=== PATIENT | male | born 1955 | race Caucasian/White ===

== ENCOUNTER 2020-03-24 11:20 | Outpatient (RCR) | payer MEDICARE ==
[~2020-03-24 11:20] MED LIST: AC500T PO; AMLO10TA82 PO; AMLO5TAB2 PO; APIX5TAB2 PO; ASP325T PO; ASPI-875 PO; ASPI-892 PO; Amlodipine Besylate PO; Aspirin PO; CARV25TA PO; CITA20TA4 PO; CLON-316 PO; CTLP20T PO; DXZS4T PO; ENXP100I SC; HYDR25TA4 PO; Hydrochlorothiazide PO; INSU100C4 SQ; INSU100I10 SQ; INSU100I14 SQ; ISM30TCR PO; LEVE1U SQ; LISI10TA PO; LISI20TA PO; LISI5TAB PO; Lisinopril PO; METO100T2 PO; Metoprolol Tartrate PO; NF-CRES10T PO; NITR0.4T SL; NTR.4SL SL; PANT20TA PO; PANT40TA PO; PNT40TEC PO; PRAS10TA6 PO; PRAV40TA PO; Prasugrel Hydrochloride PO; RIVA10TA PO; RIVA15TA PO; RIVA20TA2 PO; SIMV40TA4 PO; TICA90TA PO; WRF5T PO; [UNRECOGNIZED DRUG - OTHER] PO
[2020-03-24 11:56] LABS: INR 2.5 (0.8-1.4); PROTHROMBIN TIME PATIENT 28.1 SEC (12.2-14.7)
[2020-06-02] MEDS ORDERED: AMLO10TA7 PO (08:16)
[2020-06-02] MEDS ORDERED: RAMI10CA69 PO (08:16)
[2020-06-02] MEDS ORDERED: CLOP75TA28 PO (08:16)
[2020-06-02] MEDS ORDERED: WARF6TAB49 PO (08:16)
[2020-06-02] MEDS ORDERED: HUM100VI SQ ×2 (08:16)
[2020-06-02] MEDS ORDERED: ISM60TCR PO (08:16)
[2020-06-02] MEDS ORDERED: LISI-556 PO (08:16)
[2020-06-02] MEDS ORDERED: FURO40TA4 PO (08:16)
[2020-06-02] MEDS ORDERED: SPIR25TA5 PO (08:16)
[2020-06-02] MEDS ORDERED: ATOR40TA70 PO (08:16)
[2020-06-02] MEDS ORDERED: METO50TA7 PO (08:16)
[2020-06-03] MEDS ORDERED: CEPH-507 PO (11:12)
[2020-06-22] MEDS ORDERED: APIX5TAB PO (15:14)
== END 2020-06-22 | disposition home or self-care (01) ==
LOC: LAB 11:20
PROVIDERS: ATTEND Family Medicine
DX: I74.9 Embolism and thrombosis of unspecified artery (principal)
CPT/HCPCS: 36415; 85610

== ENCOUNTER → 2020-04-19 | Outpatient (CLI) | payer MEDICARE ==
[~2020-04-19] VITALS: Ht 180 cm; Wt 102.0 kg
[~2020-04-19] MED LIST changes: +REGADENOSON 0.4 MG/5 ML SYR (LEXISCAN) IV ONE
[2020-04-19] MEDS: CATHETER FLUSH 10 ML SYR IV PRN ×2 (07:56→09:14)
[2020-04-19 09:13] VITALS: BP 154/92
--- NOTE | 2020-04-19 14:35 | STRESS TEST ---
DATE OF SERVICE: 04/19/2020 RESTING AND POST REGADENOSON TECHNETIUM-99M TETROFOSMIN SPECT CT IMAGING ORDERING PHYSICIAN: Dr. Solorio. PRIMARY PHYSICIAN: Dr. Rosenbaum. CLINICAL DIAGNOSIS: Coronary artery disease. Baseline images were carried out after injection of 10.91 mCi of technetium-99m Tetrofosmin. This was followed by 0.4 mg regadenoson and 30.7 mCi of technetium-99m Tetrofosmin for stress imaging. The electrocardiogram showed sinus rhythm with left bundle branch block at baseline and it did not change with the regadenoson infusion. Occasional premature ventricular contraction was seen. The patient tolerated the procedure well and did not report significant symptoms. Review of images at rest and following stress indicates a large inferolateral perfusion defect that extends up to the apex. This perfusion defect is predominantly fixed. There is inferolateral hypokinesis to akinesis. Left ventricular end diastolic volume is 147 mL. TID is absent (1.16). Left ventricular ejection fraction is calculated to be 25%. CONCLUSIONS: 1. This study is indicative of a large inferolateral myocardial infarction with minimal jacoby-infarct ischemia. 2. Inferolateral hypokinesis to akinesis. 3. Cardiomegaly. 4. Impairment of global left ventricular systolic function with a calculated ejection fraction of 25%. Job ID: [id number] DocumentID: [id number] Dictated Date: 04/19/2020 12:50:53 Television Analyzer Date: 04/19/2020 14:35:07 Dictated By: KRISTINE SOLORIO MD, MA, FACP, FACC,
== END ==
LOC: CARD 07:40
PROVIDERS: ATTEND Internal Medicine Cardiovascular Disease
DX: I25.10 Atherosclerotic heart disease of native coronary artery without angina pectoris (principal); I95.1 Orthostatic hypotension; I70.1 Atherosclerosis of renal artery; E11.9 Type 2 diabetes mellitus without complications; E78.5 Hyperlipidemia, unspecified; I51.7 Cardiomegaly; I51.89 Other ill-defined heart diseases
CPT/HCPCS: 78452; 93017; A9502

== ENCOUNTER → 2020-04-20 | Outpatient (CLI) | payer MEDICARE ==
[~2020-04-20] MED LIST changes: -REGADENOSON 0.4 MG/5 ML SYR (LEXISCAN) IV ONE
== END ==
LOC: CARD 13:44
PROVIDERS: ATTEND Internal Medicine Cardiovascular Disease
DX: I35.0 Nonrheumatic aortic (valve) stenosis (principal); I25.10 Atherosclerotic heart disease of native coronary artery without angina pectoris; I95.1 Orthostatic hypotension; I70.1 Atherosclerosis of renal artery; E11.9 Type 2 diabetes mellitus without complications; E78.5 Hyperlipidemia, unspecified; I51.89 Other ill-defined heart diseases
CPT/HCPCS: 93306

== ENCOUNTER 2020-05-11 11:09 | Emergency (ER) | payer MEDICARE ==
--- NOTE | 2020-05-11 11:20 | NUR ---
REGISTRATION REPORTS PT HAS LEFT.
--- OUTSIDE RECORDS SUMMARY | 2020-05-11 13:02 | XMS REPORT | Clinical Summary ---
Author Author [facility] Organization [facility] Address Unknown Phone Unavailable Care Team Providers Care Quality Specialist Name Role Phone ChayoBrien gutierrez PCP Juanito Menard MD Unavailable Unavailable Janel Morrison RN Unavailable Unavailable Source Comments Some departments are not documenting in the electronic medical record. If you d o not see the information that you expected, contact Release of Information in [facility] Information Management department at [phone] for further assistan ce in locating additional records.[facility] Allergies Comments Active Allergy Reactions Severity Noted Date Clopidogrel UNKNOWN 07/10/2013 Medications End Date Status Medication Sig Dispensed Refills Start Date Active aspirin 81 mg chewable Take 81 mg by 0 tablet mouth daily. Active carvedilol (COREG) 25 mg Take 25 mg by 0 tablet mouth twice daily. Active citalopram (CELEXA) 20 mg Take 20 mg by 0 tablet mouth at bedtime daily. Active acetaminophen (TYLENOL) Take 1,500 mg 0 500 mg tablet by mouth daily as needed. Active insulin detemir(+) Inject 28 0 (LEVEMIR) 100 unit/mL Units into Soln area(s) as directed twice daily before meals. Active lisinopril (PRINIVIL; Take 5 mg by 0 ZESTRIL) 5 mg tablet mouth twice daily. Active nitroglycerin (NITROSTAT) Place 0.4 mg 0 0.4 mg tablet under tongue every 5 minutes as needed. Active simvastatin (ZOCOR) 40 mg Take 40 mg by 0 tablet mouth at bedtime daily. Active insulin aspart (NOVOLOG) Inject 10 0 100 unit/mL flexPEN Units into area(s) as directed three times daily with meals. Active pantoprazole DR Take 40 mg by 0 (PROTONIX) 40 mg tablet mouth daily. Active enoxaparin (LOVENOX) 100 Inject 1 mL 60 Syringe 1 1 /201 mg syrg into area(s) 3 as directed twice daily. Active Problems Problem Noted Date DVT (deep venous thrombosis) 07/10/2013 Overview: 57y/o with recurrent DVT, first DVT in LU2010, January 2013: LLE DVT. Placed on coumadin, was compliant, and INRs therapeutic. March 2013: Recurrent vs persistent LLE DVT and new PE (INR 3.4). IVC placed 04/03/2013. Switched to xarelto. May 2013: Recur rent vs persistent LLE DVT. Underwent thrombolysis and continued on xarelto. June 2013: Recurrent LLE DVT despite anticoagulation with xa relto. No arterial clots. APLS ruled out based on outside labs (Anticardioli pin Ig.1, IgM Ab: 5.4, LA negative) Factor V Mutation: negative a t OSH. Family history positive for daughter with blood clot at age 18, ag e 29 open heart surgery due to coronary clot. Previously followed by Dr. 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 Transitione d to lovenox L ast Assessment & Plan: Previous hypercoagulable workup negativ e at outside hospital. No inciting event for repeat DVT. Differential inc ludes May-Thurner syndrome. Will plan to obtain magnetic resonance venog vincent for further evaluation. Will continue lovenox BID. CAD (coronary artery disease) 07/10/2013 DM (diabetes mellitus) 07/10/2013 Peripheral vascular disease 07/10/2013 HTN (hypertension) 07/10/2013 GERD (gastroesophageal reflux disease) 07/10/2013 Family History Medical History Relation Name Comments Heart Disease Brother Blood Clots Daughter Relation Name Status Comments Brother Daughter Social History Date Tobacco Use Types Packs/Day Years Used Never Smoker Drinks/Week oz/Week Comments Alcohol Use 0 Standard drinks or equivalent 0.0 No Sex Assigned at Date Recorded Not on file Industry Job Start Date Occupation Not on file Not on file Not on file Travel End Travel History Travel Start No recent travel history available. Last Filed Vital Signs Reading Time Taken Comments Vital Sign 101/67 08/10/2013 2:38 PM CDT Blood Pressure 101 08/10/2013 2:38 PM CDT Pulse 37.1 C (98.7 F) 07/14/2013 3:39 PM CDT Temperature - - Respiratory Rate 92% 08/10/2013 2:38 PM CDT Oxygen Saturation - - Inhaled Oxygen Concentration 98.5 kg (217 lb 3.2 oz) 08/10/2013 2:38 PM CDT Weight 180.1 cm (5' 10.9") 08/10/2013 2:38 PM CDT Height 30.38 08/10/2013 2:38 PM CDT Body Mass Index Plan of Treatment Health Maintenance Due Date Last Done Comments MEDICARE ANNUAL WELLNESS 1954 VISIT HIV SCREENING 1969 DTAP/TDAP VACCINES (1 - 1972 Tdap) HEPATITIS C SCREENING 1972 PHYSICAL (COMPREHENSIVE) 1972 EXAM COLORECTAL CANCER 2004 SCREENING SHINGLES RECOMBINANT 2004 VACCINE (1 of 2) PNEUMONIA (PPSV23) 2019 VACCINE (1 of 1 - PPSV23) INFLUENZA VACCINE 07/14/2020 Results Not on filefrom Last 3 Months Insurance Type Payer Benefit Subscriber ID Effective Phone Address Plan / Dates Group Medicare MEDICARE MEDICARE xxxxxxxxxx 2013-P PART A AND resent B Medicaid [employer] [place] [employer] xxxxxxxxxxx 2012-P 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
--- OUTSIDE RECORDS SUMMARY | 2020-05-11 13:03 | XMS REPORT | Continuity of Care Document ---
Author Organization Unknown Address Unknown Phone Unavailable Allergies Active Description Code Type Severity Reaction Onset Reported/Identified Relationship to Patient Clinical Status Yes clopidogrel bisulfate [id number] Drug Allergy Mild N/A 05/05/2014 Medications There is no data. Problems Date Dx Coded Attending Type Code Diagnosis Diagnosed By 08/26/2014 GELLENDER DO, ARTIE Deshpande Ot 786.59 08/26/2014 GELLENDER DO, ARTIE Deshpande Ot 799.02 08/26/2014 GELLENDER DO, ARTIE Deshpande Ot V15.81 08/26/2014 GELLENDER DO, ARTIE Deshpande Ot 786.59 08/26/2014 GELLENDER DO, ARTIE Deshpande Ot 799.02 08/26/2014 GELLENDER DO, ARTIE Deshpande Ot V15.81 08/27/2014 GELLENDER DO, ARTIE A Ot 786.59 08/27/2014 GELLENDER DO, ARTIE A Ot 799.02 08/27/2014 GELLENDER DO, ARTIE A Ot V15.81 08/27/2014 GELLENDER DO, ARTIE A Ot 246.8 08/27/2014 GELLENDER DO, ARTIE A Ot 250.00 08/27/2014 GELLENDER DO, ARTIE A Ot 272.4 08/27/2014 GELLENDER DO, ARTIE A Ot 275.2 08/27/2014 GELLENDER DO, ARTIE A Ot 311 08/27/2014 GELLENDER DO, ARTIE A Ot 412 08/27/2014 GELLENDER DO, ARTIE A Ot 414.01 08/27/2014 GELLENDER DO, ARTIE A Ot 428.0 08/27/2014 GELLENDER DO, ARTIE A Ot 440.0 08/27/2014 GELLENDER DO, ARTIE A Ot 453.40 08/27/2014 GELLENDER DO, ARTIE A Ot 486 08/27/2014 GELLENDER DO, ARTIE Deshpande Ot 574.20 08/27/2014 GELLENDER DO, ARTIE Deshpande Ot 577.0 08/27/2014 GELLENDER DO, ARTIE Deshpande Ot 716.90 08/27/2014 GELLENDER DO, ARTIE Deshpande Ot 799.02 08/27/2014 GELLENDER DO, ARTIE Deshpande Ot V12.51 08/27/2014 GELLENDER DO, RATIE Deshpande Ot V15.81 08/27/2014 GELLENDER DO, ARTIE Deshpande Ot V45.82 08/27/2014 GELLENDER DO, ARTIE Deshpande Ot V45.89 08/27/2014 GELLENDER DO, ARTIE Deshpande Ot V58.67 08/27/2014 GELLENDER DO, ARTIE Deshpande Ot 246.8 08/27/2014 GELLENDER DO, ARTIE Deshpande Ot 250.00 08/27/2014 GELLENDER DO, ARTIE Deshpande Ot 272.4 08/27/2014 GELLENDER DO, ARTIE Deshpande Ot 275.2 08/27/2014 GELLENDER DO, ATRIE Deshpande Ot 311 08/27/2014 GELLENDER DO, ARTIE Deshpande Ot 412 08/27/2014 GELLENDER DO, ARTIE Deshpande Ot 414.01 08/27/2014 GELLENDER DO, ARTIE Deshpande Ot 428.0 08/27/2014 GELLENDER DO, ARTIE Deshpande Ot 440.0 08/27/2014 GELLENDER DO, ARTIE Deshpande Ot 453.40 08/27/2014 GELLENDER DO, ARTIE Deshpande Ot 486 08/27/2014 GELLENDER DO, ARTIE Deshpande Ot 574.20 08/27/2014 GELLENDER DO, ARTIE Deshpande Ot 577.0 08/27/2014 GELLENDER DO, ARTIE Deshpande Ot 716.90 08/27/2014 GELLENDER DO, ARTIE Deshpande Ot 799.02 08/27/2014 GELLENDER DO, ARTIE Deshpande Ot V12.51 08/27/2014 GELLENDER DO, ARTIE Deshpande Ot V15.81 08/27/2014 GELLENDER DO, ARTIE Deshpande Ot V45.82 08/27/2014 GELLENDER DO, ARTIE A Ot V45.89 08/27/2014 GELLENDER DO, ARTIE Deshpande Ot V58.67 08/28/2014 GELLENDER DO, ARTIE Deshpande Ot 246.8 08/28/2014 GELLENDER DO, ARTIE Deshpande Ot 250.00 08/28/2014 GELLENDER DO, ARTIE Deshpande Ot 272.4 08/28/2014 GELLENDER DO, ARTIE Deshpande Ot 275.2 08/28/2014 GELLENDER DO, ARTIE A Ot 311 08/28/2014 GELLENDER DO, ARTIE A Ot 412 08/28/2014 GELLENDER DO, ARTIE A Ot 414.01 08/28/2014 GELLENDER DO, ARTIE A Ot 428.0 08/28/2014 GELLENDER DO, ARTIE A Ot 440.0 08/28/2014 GELLENDER DO, ARTIE A Ot 453.40 08/28/2014 GELLENDER DO, ARTIE A Ot 486 08/28/2014 GELLENDER DO, ARTIE A Ot 574.20 08/28/2014 GELLENDER DO, ARTIE A Ot 577.0 08/28/2014 GELLENDER DO, ARTIE A Ot 716.90 08/28/2014 GELLENDER DO, ARTIE A Ot 799.02 08/28/2014 GELLENDER DO, ARTIE A Ot V12.51 08/28/2014 GELLENDER DO, ARTIE A Ot V15.81 08/28/2014 GELLENDER DO, ARTIE A Ot V45.82 08/28/2014 GELLENDER DO, ARTIE A Ot V45.89 08/28/2014 GELLENDER DO, ARTIE A Ot V58.67 08/29/2014 GELLENDER DO, ARTIE A Ot 246.8 08/29/2014 GELLENDER DO, ARTIE A Ot 250.00 08/29/2014 GELLENDER DO, ARTIE A Ot 272.4 08/29/2014 GELLENDER DO, ARTIE A Ot 275.2 08/29/2014 GELLENDER DO, ARTIE A Ot 311 08/29/2014 GELLENDER DO, ARTIE A Ot 412 08/29/2014 GELLENDER DO, ARTIE A Ot 414.01 08/29/2014 GELLENDER DO, ARTIE A Ot 428.0 08/29/2014 GELLENDER DO, ARTIE A Ot 440.0 08/29/2014 GELLENDER DO, ARTIE A Ot 453.40 08/29/2014 GELLENDER DO, ARTIE A Ot 486 08/29/2014 GELLENDER DO, ARTIE A Ot 574.20 08/29/2014 GELLENDER DO, ARTIE A Ot 577.0 08/29/2014 GELLENDER DO, ARTIE A Ot 716.90 08/29/2014 GELLENDER DO, ARTIE A Ot 799.02 08/29/2014 GELLENDER DO, ARTIE A Ot V12.51 08/29/2014 GELLENDER DO, ARTIE A Ot V15.81 08/29/2014 GELLENDER DO, ARTIE A Ot V45.82 08/29/2014 GELLENDER DO, ARTIE A Ot V45.89 08/29/2014 GELLENDER DO, ARTIE A Ot V58.67 08/30/2014 GELLENDER DO, ARTIE A Ot 246.8 08/30/2014 GELLENDER DO, ARTIE A Ot 250.00 08/30/2014 GELLENDER DO, ARTIE A Ot 272.4 08/30/2014 GELLENDER DO, ARTIE A Ot 275.2 08/30/2014 GELLENDER DO, ARTIE A Ot 311 08/30/2014 GELLENDER DO, ARTIE A Ot 412 08/30/2014 GELLENDER DO, ARTIE A Ot 414.01 08/30/2014 GELLENDER DO, ARTIE A Ot 428.0 08/30/2014 GELLENDER DO, ARTIE A Ot 440.0 08/30/2014 GELLENDER DO, ARTIE A Ot 453.40 08/30/2014 GELLENDER DO, ARTIE A Ot 486 08/30/2014 GELLENDER DO, ARTIE A Ot 574.20 08/30/2014 GELLENDER DO, ARTIE A Ot 577.0 08/30/2014 GELLENDER DO, ARTIE A Ot 716.90 08/30/2014 GELLENDER DO, ARTIE Deshpande Ot 799.02 08/30/2014 GELLENDER DO, ARTIE Deshpande Ot V12.51 08/30/2014 GELLENDER DO, ARTIE A Ot V15.81 08/30/2014 GELLENDER DO, ARTIE A Ot V45.82 08/30/2014 GELLENDER DO, ARTIE A Ot V45.89 08/30/2014 GELLENDER DO, ARTIE A Ot V58.67 08/31/2014 GELLENDER DO, ARTIE A Ot 246.8 08/31/2014 GELLENDER DO, ARTIE A Ot 250.00 08/31/2014 GELLENDER DO, ARTIE A Ot 272.4 08/31/2014 GELLENDER DO, ARTIE A Ot 275.2 08/31/2014 GELLENDER DO, ARTIE A Ot 311 08/31/2014 GELLENDER DO, ARTIE A Ot 412 08/31/2014 GELLENDER DO, ARTIE A Ot 414.01 08/31/2014 GELLENDER DO, ARTIE A Ot 428.0 08/31/2014 GELLENDER DO, ARTIE A Ot 440.0 08/31/2014 GELLENDER DO, ARTIE A Ot 453.40 08/31/2014 GELLENDER DO, ARTIE A Ot 486 08/31/2014 GELLENDER DO, ARTIE A Ot 574.20 08/31/2014 GELLENDER DO, ARTIE A Ot 577.0 08/31/2014 GELLENDER DO, ARTIE A Ot 716.90 08/31/2014 GELLENDER DO, ARTIE A Ot 799.02 08/31/2014 GELLENDER DO, ARTIE A Ot V12.51 08/31/2014 GELLENDER DO, ARTIE A Ot V15.81 08/31/2014 GELLENDER DO, ARTIE A Ot V45.82 08/31/2014 GELLENDER DO, ARTIE A Ot V45.89 08/31/2014 GELLENDER DO, ARTIE A Ot V58.67 09/01/2014 GELLENDER DO, ARTIE A Ot 246.8 09/01/2014 GELLENDER DO, ARTIE A Ot 250.00 09/01/2014 GELLENDER DO, ARTIE A Ot 272.4 09/01/2014 GELLENDER DO, ARTIE A Ot 275.2 09/01/2014 GELLENDER DO, ARTIE A Ot 311 09/01/2014 GELLENDER DO, ARTIE A Ot 412 09/01/2014 GELLENDER DO, ARTIE A Ot 414.01 09/01/2014 GELLENDER DO, ARTIE A Ot 428.0 09/01/2014 GELLENDER DO, ARTIE A Ot 440.0 09/01/2014 GELLENDER DO, ARTIE A Ot 453.40 09/01/2014 GELLENDER DO, ARTIE A Ot 486 09/01/2014 GELLENDER DO, ARTIE A Ot 574.20 09/01/2014 GELLENDER DO, ARTIE A Ot 577.0 09/01/2014 GELLENDER DO, ARTIE A Ot 716.90 09/01/2014 GELLENDER DO, ARTIE A Ot 799.02 09/01/2014 GELLENDER DO, ARTIE A Ot V12.51 09/01/2014 GELLENDER DO, ARTIE A Ot V15.81 09/01/2014 GELLENDER DO, ARTIE A Ot V45.82 09/01/2014 GELLENDER DO, ARTIE A Ot V45.89 09/01/2014 GELLENDER DO, ARTIE A Ot V58.67 09/01/2014 GELLENDER DO, ARTIE A Ot 246.8 09/01/2014 GELLENDER DO, ARTIE A Ot 250.00 09/01/2014 GELLENDER DO, ARTIE A Ot 272.4 09/01/2014 GELLENDER DO, ARTIE A Ot 275.2 09/01/2014 GELLENDER DO, ARTIE A Ot 311 09/01/2014 GELLENDER DO, ARTIE A Ot 412 09/01/2014 GELLENDER DO, ARTIE A Ot 414.01 09/01/2014 GELLENDER DO, ARTIE A Ot 428.0 09/01/2014 GELLENDER DO, ARTIE A Ot 440.0 09/01/2014 GELLENDER DO, ARTIE A Ot 453.40 09/01/2014 GELLENDER DO, ARTIE A Ot 486 09/01/2014 GELLENDER DO, ARTIE A Ot 574.20 09/01/2014 GELLENDER DO, ARTIE A Ot 577.0 09/01/2014 GELLENDER DO, ARTIE A Ot 716.90 09/01/2014 GELLENDER DO, ARTIE A Ot 799.02 09/01/2014 GELLENDER DO, ARTIE A Ot V12.51 09/01/2014 GELLENDER DO, ARTIE A Ot V15.81 09/01/2014 GELLENDER DO, ARTIE A Ot V45.82 09/01/2014 GELLENDER DO, ARTIE A Ot V45.89 09/01/2014 GELLENDER DO, ARTIE A Ot V58.67 09/02/2014 GELLENDER DO, ARTIE A Ot 246.8 09/02/2014 GELLENDER DO, ARTIE A Ot 250.02 09/02/2014 GELLENDER DO, ARTIE A Ot 270.4 09/02/2014 GELLENDER DO, ARTIE A Ot 272.4 09/02/2014 GELLENDER DO, ARTIE A Ot 275.2 09/02/2014 GELLENDER DO, ARTIE A Ot 300.01 09/02/2014 GELLENDER DO, ARTIE A Ot 311 09/02/2014 GELLENDER DO, ARTIE A Ot 405.91 09/02/2014 GELLENDER DO, ARTIE A Ot 411.1 09/02/2014 GELLENDER DO, ARTIE A Ot 412 09/02/2014 GELLENDER DO, ARTIE A Ot 414.01 09/02/2014 GELLENDER DO, ARTIE A Ot 428.0 09/02/2014 GELLENDER DO, ARTIE A Ot 435.9 09/02/2014 GELLENDER DO, ARTIE A Ot 440.0 09/02/2014 GELLENDER DO, ARTIE A Ot 453.41 09/02/2014 GELLENDER DO, ARTIE A Ot 453.50 09/02/2014 GELLENDER DO, ARTIE A Ot 486 09/02/2014 GELLENDER DO, ARTIE A Ot 530.81 09/02/2014 GELLENDER DO, ARTIE A Ot 574.20 09/02/2014 GELLENDER DO, ARTIE A Ot 577.0 09/02/2014 GELLENDER DO, ARTIE A Ot 715.90 09/02/2014 GELLENDER DO, ARTIE A Ot 799.02 09/02/2014 GELLENDER DO, ARTIE A Ot V15.81 09/02/2014 GELLENDER DO, ARTIE A Ot V45.82 09/02/2014 GELLENDER DO, ARTIE A Ot V45.89 09/02/2014 GELLENDER DO, ARTIE A Ot V58.67 09/02/2014 GELLENDER DO, ARTIE A Ot 246.8 09/02/2014 GELLENDER DO, ARTIE A Ot 250.02 09/02/2014 GELLENDER DO, ARTIE A Ot 270.4 09/02/2014 GELLENDER DO, ARTIE A Ot 272.4 09/02/2014 GELLENDER DO, ARTIE A Ot 275.2 09/02/2014 GELLENDER DO, ARTIE A Ot 300.01 09/02/2014 GELLENDER DO, ARTIE A Ot 311 09/02/2014 GELLENDER DO, ARTIE A Ot 402.91 09/02/2014 GELLENDER DO, ARTIE A Ot 411.1 09/02/2014 GELLENDER DO, ARTIE A Ot 412 09/02/2014 GELLENDER DO, ARTIE A Ot 414.01 09/02/2014 GELLENDER DO, ARTIE A Ot 428.0 09/02/2014 GELLENDER DO, ARTIE A Ot 435.9 09/02/2014 GELLENDER DO, ARTIE A Ot 440.0 09/02/2014 GELLENDER DO, ARTIE A Ot 453.41 09/02/2014 GELLENDER DO, ARTIE A Ot 453.50 09/02/2014 GELLENDER DO, ARTIE A Ot 486 09/02/2014 GELLENDER DO, ARTIE A Ot 530.81 09/02/2014 GELLENDER DO, ARTIE A Ot 574.20 09/02/2014 GELLENDER DO, ARTIE A Ot 715.90 09/02/2014 GELLENDER DO, ARTIE A Ot 799.02 09/02/2014 GELLENDER DO, ARTIE A Ot V04.81 09/02/2014 GELLENDER DO, ARTIE A Ot V15.81 09/02/2014 GELLENDER DO, ARTIE A Ot V45.82 09/02/2014 GELLENDER DO, ARTIE A Ot V45.89 09/02/2014 GELLENDER DO, ARTIE A Ot V58.67 09/17/2014 GELLENDER DO, ARTIE A Ot 246.8 09/17/2014 GELLENDER DO, ARTIE A Ot 250.02 09/17/2014 GELLENDER DO, ARTIE A Ot 270.4 09/17/2014 GELLENDER DO, ARTIE A Ot 272.4 09/17/2014 GELLENDER DO, ARTIE A Ot 275.2 09/17/2014 GELLENDER DO, ARTIE A Ot 300.01 09/17/2014 GELLENDER DO, ARTIE A Ot 311 09/17/2014 GELLENDER DO, ARTIE A Ot 402.91 09/17/2014 GELLENDER DO, ARTIE A Ot 411.1 09/17/2014 GELLENDER DO, ARTIE A Ot 412 09/17/2014 GELLENDER DO, ARTIE A Ot 414.01 09/17/2014 GELLENDER DO, ARTIE A Ot 428.0 09/17/2014 GELLENDER DO, ARTIE A Ot 435.9 09/17/2014 GELLENDER DO, ARTIE A Ot 440.0 09/17/2014 GELLENDER DO, ARTIE A Ot 453.41 09/17/2014 GELLENDER DO, ARTIE A Ot 453.50 09/17/2014 GELLENDER DO, ARTIE A Ot 486 09/17/2014 GELLENDER DO, ARTIE A Ot 530.81 09/17/2014 GELLENDER DO, ARTIE A Ot 574.20 09/17/2014 GELLENDER DO, ARTIE A Ot 715.90 09/17/2014 GELLENDER DO, ARTIE A Ot 799.02 09/17/2014 GELLENDER DO, ARTIE A Ot V04.81 09/17/2014 GELLENDER DO, ARTIE A Ot V15.81 09/17/2014 GELLENDER DO, ARTIE A Ot V45.82 09/17/2014 GELLENDER DO, ARTIE A Ot V45.89 09/17/2014 GELLENDER DO, ARTIE A Ot V58.67 09/17/2014 GELLENDER DO, ARTIE A Ot 246.8 09/17/2014 GELLENDER DO, ARTIE A Ot 250.02 09/17/2014 GELLENDER DO, ARTIE A Ot 270.4 09/17/2014 GELLENDER DO, ARTIE A Ot 272.4 09/17/2014 GELLENDER DO, ARTIE A Ot 275.2 09/17/2014 GELLENDER DO, ARTIE A Ot 300.01 09/17/2014 GELLENDER DO, ARTIE A Ot 311 09/17/2014 GELLENDER DO, ARTIE A Ot 402.91 09/17/2014 GELLENDER DO, ARTIE A Ot 411.1 09/17/2014 GELLENDER DO, ARTIE A Ot 412 09/17/2014 GELLENDER DO, ARTIE A Ot 414.01 09/17/2014 GELLENDER DO, ARTIE A Ot 428.0 09/17/2014 GELLENDER DO, ARTIE A Ot 435.9 09/17/2014 GELLENDER DO, ARTIE A Ot 440.0 09/17/2014 GELLENDER DO, ARTIE A Ot 453.41 09/17/2014 GELLENDER DO, ARTIE A Ot 453.50 09/17/2014 GELLENDER DO, ARTIE A Ot 486 09/17/2014 GELLENDER DO, ARTIE A Ot 530.81 09/17/2014 GELLENDER DO, ARTIE A Ot 574.20 09/17/2014 GELLENDER DO, ARTIE A Ot 715.90 09/17/2014 GELLENDER DO, ARTIE A Ot 799.02 09/17/2014 GELLENDER DO, ARTIE A Ot V04.81 09/17/2014 GELLENDER DO, ARTIE A Ot V15.81 09/17/2014 GELLENDER DO, ARTIE A Ot V45.82 09/17/2014 GELLENDER DO, ARTIE Deshpande Ot V45.89 09/17/2014 GELLENDER DO, ARTIE Deshpande Ot V58.67 09/17/2014 GELLENDER DO, ARTIE Deshpande Ot 246.8 09/17/2014 GELLENDER DO, ARTIE Deshpande Ot 250.02 09/17/2014 GELLENDER DO, ARTIE Deshpande Ot 270.4 09/17/2014 GELLENDER DO, ARTIE Deshpande Ot 272.4 09/17/2014 GELLENDER DO, ARTIE Deshpande Ot 275.2 09/17/2014 GELLENDER DO, ARTIE Deshpande Ot 300.01 09/17/2014 GELLENDER DO, ARTIE Deshpande Ot 311 09/17/2014 GELLENDER DO, ARTIE Deshpande Ot 402.91 09/17/2014 GELLENDER DO, ARTIE Deshpande Ot 411.1 09/17/2014 GELLENDER DO, ARTIE Deshpande Ot 412 09/17/2014 GELLENDER DO, ARTIE Deshpande Ot 414.01 09/17/2014 GELLENDER DO, ARTIE Deshpande Ot 428.0 09/17/2014 GELLENDER DO, ARTIE Deshpande Ot 435.9 09/17/2014 GELLENDER DO, ARTIE Deshpande Ot 440.0 09/17/2014 GELLENDER DO, ARTIE Deshpande Ot 453.41 09/17/2014 GELLENDER DO, ARTIE Deshpande Ot 453.50 09/17/2014 GELLENDER DO, ARTIE Deshpande Ot 486 09/17/2014 GELLENDER DO, ARTIE Deshpande Ot 530.81 09/17/2014 GELLENDER DO, ARTIE Deshpande Ot 574.20 09/17/2014 GELLENDER DO, ARTIE Deshpande Ot 715.90 09/17/2014 GELLENDER DO, ARTIE Deshpande Ot 799.02 09/17/2014 GELLENDER DO, ARTIE Deshpande Ot V04.81 09/17/2014 GELLENDER DO, ARTIE Deshpande Ot V15.81 09/17/2014 GELLENDER DO, ARTIE Deshpande Ot V45.82 09/17/2014 GELLENDER DO, ARTIE Deshpande Ot V45.89 09/17/2014 GELLENDER DO, ARTIE Deshpande Ot V58.67 09/24/2014 Ot 453.40 11/25/2014 GELLENDER DO, ARTIE Deshpande Ot 250.02 DIAB CHUCK WO COMPL, TYPE II OR UNSPEC TY 11/25/2014 GELLENDER DO, ARTIE Deshpande Ot 300.01 PANIC DISORDER WITHOUT AGORAPHOBIA 11/25/2014 GELLENDER DO, ARTIE Deshpande Ot 414.01 CORONARY ATHEROSCLEROSIS OF [place] CORON 11/25/2014 GELLENDER DO, ARTIE Deshpande Ot 530.81 ESOPHAGEAL REFLUX 11/25/2014 GELLENDER DO, ARTIE Deshpande Ot 786.59 CHEST PAIN NEC 11/25/2014 GELLENDER DO, ARTIE Deshpande Ot V12.51 HX-VENOUS THROMBOSIS EMBOLISM 11/25/2014 GELLENDER DO, ARTIE Deshpande Ot V12.55 PERSONAL HISTORY OF PULMONARY EMBOLISM 11/25/2014 GELLENDER DO, ARTIE Deshpande Ot V15.81 HX OF PAST NONCOMPLIANCE 11/25/2014 GELLENDER DO, ARTIE Deshpande Ot V45.82 PERCUTANEOUS TRANSLUM CORON ANGIOPLASTY 11/25/2014 GELLENDER DO, ARTIE Deshpande Ot V58.67 LONG-TERM (CURRENT) USE OF INSULIN 11/25/2014 GELLENDER DO, ARTIE Deshpande Ot 250.02 11/25/2014 GELLENDER DO, ARTIE Deshpande Ot 300.01 11/25/2014 GELLENDER DO, ARTIE Deshpande Ot 414.01 11/25/2014 GELLENDER DO, ARTIE Deshpande Ot 530.81 11/25/2014 GELLENDER DO, ARTIE Deshpande Ot 786.59 11/25/2014 GELLENDER DO, ARTIE Deshpande Ot V12.51 11/25/2014 GELLENDER DO, ARTIE Deshpande Ot V12.55 11/25/2014 GELLENDER DO, ARTIE Deshpande Ot V15.81 11/25/2014 GELLENDER DO, ARTIE Deshpande Ot V45.82 11/25/2014 GELLENDER DO, ARTIE Deshpande Ot V58.67 02/28/2015 GELLENDER DO, ARTIE Deshpande Ot 250.00 DIAB CHUCK WO COMPL, TYPE II OR UNSPEC TY 02/28/2015 GELLENDER DO, ARTIE Deshpande Ot 300.00 ANXIETY STATE NOS 02/28/2015 GELLENDER DO, ARTIE Deshpande Ot 401.9 HYPERTENSION NOS 02/28/2015 GELLENDER DO, ARTIE Deshpande Ot 412 OLD MYOCARDIAL INFARCT 02/28/2015 GELLENDER DO, ARTIE Deshpande Ot 414.01 CORONARY ATHEROSCLEROSIS OF [place] CORON 02/28/2015 GELLENDER DO, ARTIE Deshpande Ot 530.81 ESOPHAGEAL REFLUX 02/28/2015 GELLENDER DO, ARTIE Deshpande Ot 574.10 CHOLELITH W CHOLECYS NEC 02/28/2015 GELLENARTIE AIKEN DO Ot 592.0 CALCULUS OF KIDNEY 02/28/2015 [facility] ARTIE HART Ot 593.9 RENAL URETERAL DIS NOS 02/28/2015 ARTIE PETTY DO Ot V12.51 HX-VENOUS THROMBOSIS EMBOLISM 02/28/2015 ARTIE PETTY DO Ot V12.55 PERSONAL HISTORY OF PULMONARY EMBOLISM 02/28/2015 ARTIE PETTY DO Ot V15.81 HX OF PAST NONCOMPLIANCE [facility] Ot V45.82 PERCUTANEOUS TRANSLUM CORON ANGIOPLASTY [facility] V58.67 LONG-TERM (CURRENT) USE OF INSULIN 03/24/2020 Ot 453.40 ACU TE VENOUS EMBOLISM THROMBOSIS UNSP 03/24/2020 Ot 453.40 ACU TE VENOUS EMBOLISM THROMBOSIS UNSP 04/19/2020 Ot 453.40 ACU TE VENOUS EMBOLISM THROMBOSIS UNSP 04/19/2020 ARTIE PETTY DO Ot I74.9 EMBOLISM AND THROMBOSIS OF UNSPECIFIED A 04/21/2020 UBALDO NEWMAN FACC, KRISTINE FACP CCDS Ot E11.9 TYPE 2 DIABETES MELLITUS WITHOUT COMPLIC 04/21/2020 UBALDO NEWMAN FACC, KRISTINE FACP CCDS Ot E78.5 HYPERLIPIDEMIA, UNSPECIFIED 04/21/2020 UBALDO NEWMAN FACC, ALI FACP CCDS Ot I25.10 ATHSCL HEART DISEASE OF [place] CORONARY 04/21/2020 UBALDO NEWMAN FACC, KRISTINE FACP CCDS Ot I51.7 CARDIOMEGALY 04/21/2020 UBALDO NEWMAN FACC, ALI FACP CCDS Ot I51.89 OTHER ILL-DEFINED HEART DISEASES 04/21/2020 UBALDO NEWMAN FACC, ALI FACP CCDS Ot I70.1 ATHEROSCLEROSIS OF RENAL ART[place] 04/21/2020 UBALDO NEWMAN FACC, ALI FACP CCDS Ot I95.1 ORTHOSTATIC HYPOTENSION 04/21/2020 UBALDO NEWMAN FACC, KRISTINE FACP CCDS Ot E11.9 TYPE 2 DIABETES MELLITUS WITHOUT COMPLIC 04/21/2020 UBALDO NEWMAN FACC, ALI FACP CCDS Ot E78.5 HYPERLIPIDEMIA, UNSPECIFIED 04/21/2020 UBALDO NEWMAN FACC, ALI FACP CCDS Ot I25.10 ATHSCL HEART DISEASE OF [place] CORONARY 04/21/2020 UBALDO NEWMAN FACC, ALI FACP CCDS Ot I35.0 NONRHEUMATIC AORTIC (VALVE) STENOSIS 04/21/2020 UBALDO NEWMAN FACC, KRISTINE [facility] Ot I51.89 OTHER ILL-DEFINED HEART DISEASES 04/21/2020 UBALDO NEWMAN FACC, KRISTINE LAMBERT [facility] Ot I70.1 ATHEROSCLEROSIS OF RENAL ART[place] 04/21/2020 UBALDO NEWMAN FACC, KRISTINE LAMBERT [facility] Ot I95.1 ORTHOSTATIC HYPOTENSION 04/28/2020 ARTIE PETTY DO Ot I74.9 EMBOLISM AND THROMBOSIS OF UNSPECIFIED A Procedures There is no data. Results Test Result Range PT panel in platelet poor plasma by coag ulation assay - 03/24/20 11:36 Prothrombin time (PT) in platelet poor plasma by coagu lation assay 28.1 s 12.2-14.7 INR in platelet poor plasma or blood by coagulation as say 2.5 0.8-1.4 Encounters ACCT No. Visit Date/Time Discharge Status Pt. Type Provider Facility Loc./Unit Complaint [id number] 04/20/2020 13:44:00 020 23:59:59 CLS Outpatient KRISTINE CONNER MD, FACC, FACP CC DS [facility] CARD CAD,POSTURAL HYPOTENSION,RENAL ART STENOSIS,HLD [id number] 04/19/2020 07:40:00 020 23:59:59 CLS Outpatient KRISTINE CONNER MD, FACC, FACP CC DS [facility] CARD CAD,POSTURAL HYPOTENSION,RENAL ART STENOSIS,HLD [id number] 03/24/2020 11:20:00 020 23:59:59 CLS Outpatient ARTIE PETTY DO [facility] LAB BLOOD CLOT [id number] 02/27/2015 13:00:00 015 16:25:00 DIS Inpatient ARTIE PETTY DO [facility] CSD ACUTE RENAL INSUFFICIENCY,CHEST PAIN,CHOLELITHIASI [id number] 11/24/2014 02:30:00 015 18:30:00 DIS Inpatient ARTIE PETTY DO [facility] CSD CHEST PAIN [id number] 08/25/2014 12:50:00 014 15:50:00 DIS Inpatient ARTIE PETTY DO [facility] [id number] 05/20/2014 13:00:00 014 23:59:59 CLS Outpatient [id number] 05/05/2014 11:37:00 014 08:56:00 DIS Inpatient [id number] 12/09/2013 13:30:00 014 11:35:00 DIS Inpatient [id number] 12/08/2013 14:39:00 014 23:59:59 CLS Outpatient [id number] 05/11/2013 11:04:00 00:01:00 DIS Outpatient [id number] 07/30/2013 10:47:00 23:59:59 CLS Outpatient [id number] 07/21/2013 08:12:00 23:59:59 CLS Outpatient [id number] 07/08/2013 08:03:00 013 15:00:00 DIS Inpatient [id number] 06/25/2013 08:34:00 013 18:30:00 DIS Outpatient [id number] 05/28/2013 11:44:00 013 16:30:00 DIS Inpatient [id number] 02/16/2013 07:37:00 013 00:01:00 DIS Outpatient [id number] 05/08/2013 14:04:00 23:59:59 CLS Outpatient [id number] 02/02/2013 09:47:00 013 00:01:00 DIS Outpatient [id number] 05/01/2013 10:00:00 23:59:59 CLS Outpatient [id number] 04/24/2013 12:10:00 23:59:59 CLS Outpatient [id number] 04/21/2013 11:30:00 23:59:59 CLS Outpatient [id number] 04/17/2013 14:05:00 23:59:59 CLS Outpatient [id number] 04/02/2013 00:20:00 12:30:00 DIS Inpatient [id number] 02/13/2013 16:35:00 23:59:59 CLS Outpatient [id number] 02/13/2013 12:58:00 23:59:59 CLS Outpatient [id number] 05/11/2020 09:30:00 P EN PreadARTIE Barger DO [facility] RAD RT THYROID NODULE [id number] 10/01/2014 08:52:00 Document Registration
== END 2020-05-11 11:21 | disposition left against medical advice (07) ==
LOC: EDUNIT# 11:09 → ER 11:12
DX: R73.09 Other abnormal glucose (principal)

== ENCOUNTER → 2020-05-11 | Outpatient (CLI) | payer MEDICARE ==
[2020-05-11 10:01] LABS: BASOPHILS % (AUTO) 0 % (0-10); EOSINOPHILS # (AUTO) 0.1 10^3/uL (0.0-0.3); EOSINOPHILS % (AUTO) 2 % (0-10); HEMATOCRIT 42 % (40-54); HEMOGLOBIN 14.7 G/DL (13.3-17.7); LYMPHOCYTES # (AUTO) 1.1 X 10^3 (1.0-4.0); LYMPHOCYTES % (AUTO) 17 % (12-44); MEAN CORPUSCULAR HEMOGLOBIN 29 PG (25-34); MEAN CORPUSCULAR HGB CONC 35 G/DL (32-36); MEAN CORPUSCULAR VOLUME 83 FL (80-99); MEAN PLATELET VOLUME 11.2 FL (7.4-10.4); MONOCYTES # (AUTO) 0.4 X 10^3 (0.0-1.0); MONOCYTES % (AUTO) 6 % (0-12); NEUTROPHILS # (AUTO) 4.8 X 10^3 (1.8-7.8); NEUTROPHILS % (AUTO) 75 % (42-75); PLATELET COUNT 191 10^3/uL (130-400); RED CELL DISTRIBUTION WIDTH 12.9 % (10.0-14.5); WHITE BLOOD COUNT 6.4 10^3/uL (4.3-11.0)
[2020-05-11 10:20] LABS: ALBUMIN 3.8 GM/DL (3.2-4.5); BILIRUBIN,TOTAL 0.6 MG/DL (0.1-1.0); CALCIUM 8.9 MG/DL (8.5-10.1); CREATININE SERUM 1.61 MG/DL (0.60-1.30); POTASSIUM 4.4 MMOL/L (3.6-5.0); TOTAL PROTEIN 7.4 GM/DL (6.4-8.2)
[2020-05-11 10:23] LABS: ERYTHROCYTE SEDIMENTATION RATE 7 MM/HR (0-30)
== END ==
LOC: LAB 09:24
PROVIDERS: ATTEND Family Medicine
DX: I25.10 Atherosclerotic heart disease of native coronary artery without angina pectoris (principal); E04.1 Nontoxic single thyroid nodule; E11.9 Type 2 diabetes mellitus without complications; I77.89 Other specified disorders of arteries and arterioles; E78.5 Hyperlipidemia, unspecified; I70.1 Atherosclerosis of renal artery; R06.02 Shortness of breath; Z79.01 Long term (current) use of anticoagulants; Z86.718 Personal history of other venous thrombosis and embolism
CPT/HCPCS: 36415; 80053; 80061; 83880; 84443; 85025; 85652

== ENCOUNTER → 2020-05-19 | Outpatient (CLI) | payer MEDICARE | LOC: CARD 08:06 | PROVIDERS: ATTEND Internal Medicine Interventional Cardiology | DX: I35.1 Nonrheumatic aortic (valve) insufficiency (principal); I44.7 Left bundle-branch block, unspecified; I42.0 Dilated cardiomyopathy; I50.42 Chronic combined systolic (congestive) and diastolic (congestive) heart failure | CPT/HCPCS: 93306 ==

== ENCOUNTER 2020-06-02 06:52 | Day surgery (SDC) | payer MEDICARE ==
[2020-06-02] VITALS (9 sets, daily range): BP systolic 136–171; BP diastolic 91–110
[~2020-06-02] VITALS: Ht 180 cm; Wt 101.0 kg
[2020-06-02] MEDS ORDERED: NS IV 1000 ML 1,000 ML IV ONE (07:08)
[2020-06-02] MEDS ORDERED: ceFAZolin INJECTION 1,000 MG ONE ×2 (07:15)
[2020-06-02] MEDS ORDERED: LIDOCAINE 1% INJ 20 ML 20 ML VIAL ONE (07:15)
[2020-06-02] MEDS ORDERED: BACITRACIN INJECTION 50,000 UNIT, SODIUM CHLORIDE 0.9% IRRIGATIO 500 ML IR ONE ×2 (07:15)
[2020-06-02] MEDS ORDERED: HEParin (CATH LAB) 1,000 ML IV ONE (07:15)
[2020-06-02] MEDS ORDERED: NS IV 1000 ML 1,000 ML ONE (07:15)
[2020-06-02] MEDS ORDERED: AMLO10TA7 PO (08:16)
[2020-06-02] MEDS ORDERED: HUM100VI SQ ×2 (08:16)
[2020-06-02] MEDS ORDERED: ISM60TCR PO (08:16)
[2020-06-02] MEDS ORDERED: SPIR25TA5 PO (08:16)
[2020-06-02] MEDS ORDERED: WARF6TAB49 PO (08:16)
[2020-06-02] MEDS ORDERED: LISI-556 PO (08:16)
[2020-06-02] MEDS ORDERED: METO50TA7 PO (08:16)
[2020-06-02] MEDS ORDERED: RAMI10CA69 PO (08:16)
[2020-06-02] MEDS ORDERED: FURO40TA4 PO (08:16)
[2020-06-02] MEDS ORDERED: CLOP75TA28 PO (08:16)
[2020-06-02] MEDS ORDERED: ATOR40TA70 PO (08:16)
[2020-06-02 08:23] LABS: INR 1.1 (0.8-1.4); PROTHROMBIN TIME PATIENT 14.8 SEC (12.2-14.7)
[2020-06-02 08:24] LABS: HEMOGLOBIN 16.1 G/DL (13.3-17.7); WHITE BLOOD COUNT 6.4 10^3/uL (4.3-11.0)
[2020-06-02 08:25] LABS: MEAN PLATELET VOLUME 12.1 FL (7.4-10.4); RED CELL DISTRIBUTION WIDTH 12.6 % (10.0-14.5)
[2020-06-02 08:36] LABS: ALBUMIN 4.1 GM/DL (3.2-4.5); BILIRUBIN,TOTAL 0.7 MG/DL (0.1-1.0); CREATININE SERUM 1.22 MG/DL (0.60-1.30); POTASSIUM 3.8 MMOL/L (3.6-5.0); TOTAL PROTEIN 8.1 GM/DL (6.4-8.2)
[2020-06-02] MEDS ORDERED: NS (IVPB) 50 ML ONE (09:03)
[2020-06-02] MEDS ORDERED: fentaNYL INJECTION 100 MCG/2 ML AMP ONE ×2 (09:55→10:55)
[2020-06-02] MEDS ORDERED: MIDAZOLAM 5 MG/5 ML (VERSED) VIAL ONE ×2 (09:55→10:55)
[2020-06-02] MEDS ORDERED: proPOfol 200 MG/20 ML (DIPRIVAN) VIAL IV ONE (12:36)
[2020-06-02] MEDS ORDERED: NS IV 1000 ML 1,000 ML IV SCH (13:22)
--- NOTE | 2020-06-02 13:22 | BiVentricular ICD Implantation ---
BiVentricular ICD Implant BIVENTRICULAR-ICD DATE OF SERVICE: 06/02/20 CARDIAC BIOFUELS PRODUCT DEVELOPMENT MANAGER: Berry Renee MD REF[employer]ING [employer] COUNSELOR: Spencer Solorio MD INDICATION: 1. Severe LV systolic dysfunction with an EF of 35 percent on aggressive goal- directed medical therapy for at least 3 months. 2. Left bundle branch block with QRS duration of 140 ms 3. Schley Heart Association class II-III heart failure. PREOPERATIVE DIAGNOSES: 1. Severe LV systolic dysfunction with an EF of 35 percent on aggressive goal- directed medical therapy for at least 3 months. 2. Left bundle branch block with QRS duration of 140 ms. 3. Schley Heart Association class II-III heart failure. POSTOPERATIVE DIAGNOSES: 1. Successful biventricular ICD implantation. HISTORY: This is a 64 male with ischemic cardiomyopathy and EF of 35 percent on a ggressive goal-directed medical therapy for atleast three months. Chronic left bundle branch block with QRS width of 140ms. Patient has Schley Heart Association Class II/III CHF, biventricular ICD implantation is recommended. PROCEDURE PERFORMED: 1. Biventricular ICD implantation. 2. DFT. COMPLICATIONS: None. ESTIMATED BLOOD LOSS: 20 mL. SPECIMENS: None. ANESTHESIA: Conscious sedation. ORAL ANTICOAGULATION: None. FLUOROSCOPY TIME: 21.3 minutes. FLUOROSCOPY DOSE: 488 MGY. CONTRAST DOSE: 30 mL PROCEDURE DETAILS: Informed consent was taken before the procedure was started. All the risks and complications were explained in detail which included vascular damage, pneumothorax, cardiac perforation, bleeding and infection. Once the patient accepted all the risks and complications, he was brought to the EP lab. The patient was given 2 gram of Ancef before the procedure. He was draped and prepped in the usual sterile fashion. A left-sided incision was performed just below the clavicle and dissection was carried down to the pectoralis fascia. We then under fluoroscopic guidance, the axillary vein was accessed 3 times and 3 J-tip wires were placed via the axillary vein into the IVC. two wires clamped with a mosquito clamp. We then took a 9-[place] Sensicstronic extended hook guide catheter and advanced it over one of the wires. We had already placed a 9-[place] sheath in it. Under fluoroscopic guidance, we were able to cross into the coronary sinus with the wire. We then took a guide cath into the coronary sinus. A small amount of contrast was injected, which showed that we were indeed in the proximal segment of the coronary sinus. We then took the wire out and put in an occlusion balloon. The balloon was dilated in the proximal coronary sinus and the coronary sinus venogram was performed in both FLOWERS and ANGOLAN fluoroscopic orientation. The venogram showed that the only reasonable vein was a posterior lateral branch. We then took a Medtronic Quad CS lead with the Choice PT wire and placed it into the coronary sinus. Initially we were not able to get into the posterior lateral branch therefore we had to take the lead and the 0.014 wire out and go back in with a J-tipped Glidewire and a subselector. With the help of the subselector, we were able to get into the posterior lateral branch. The J tipped guidewire was taken out and we went in with the Medtronic quadripolar CS lead with a choice 0.014 wire. We were able to put the coronary wire into the posterior lateral vein distally and then were able to advance the CS lead. The CS lead was checked, which showed excellent sensitivity and threshold and no diaphragmatic stimulation. The wire was therefore taken out, the both sheaths were slit. The lead was still in its original place. The LV lead was then sutured to the pectoralis fascia with 2.0 nonabsorbable sutures. We put a 9-[place] sheath in one of the J-tip wire in the axillary vein and then took dual-coil RV ICD and advanced it and crossed under fluoroscopic guidance, crossed the tricuspid valve and placed it into the RV apex. The lead screw was deployed under fluoroscopic guidance. The lead was tested perioperatively and showed excellent sensitivity and capture threshold. There was no diaphragmatic stimulation. The sheath was therefore taken out and the lead was sutured to the muscle and pectoralis fascia with 2.0 nonabsorbable sutures. Through a 7F sheath, right atrial lead was placed. Lead screw was deployed under flouroscopic guidance. The lead was tested perioperatively and showed excellent sensitivity and capture threshold. There was no diaphragmatic stimulation. The sheath was therefore taken out and the lead was sutured to the muscle and pectoralis fascia with 2.0 nonabsorbable sutures. The RA, RV and LV leads were attached to a BiV ICD. The pocket was irrigated. The device was placed in Tyrex antibiotic covering and then was placed in the pocket. DFT testing was done with anesthesia support. The induction mechanism was a T-shock at 300 ms and 0.6 J. VF was noted. Successful defibrillation with 25 J. The wound was closed in 2 layers. The first layer was 6 interrupted 2-0 absorbable sutures. The next layer with which we closed the skin was a 4-0 silk. The skin was cleaned and Steri-Strips were placed and a bandage was daria jo on top. The patient was transferred to the intensive care unit unit in stable condition. DEVICE INFORMATION: Medtronic CRTD [id number] AMPLIA MRI QUAD US DF4 Model [id number], [id number]. LEADS: 1. The right atrial lead: Medtronic, model number [id number], length 52, serial number [id number]. 2. RV ICD lead; Medtronic, model number [id number], length 62, serial number [id number]. 3. LV CS lead; model number 737840, length 88, serial number [id number] PERIOPERATIVE DEVICE INTERROGATION: 1. Right atrium: right atrial, bipolar, capture threshold 0.5 V at 0.5 ms. P- wave 2.8 mV. impedance 600 ohms. 2. Right ventricle, bipolar, capture threshold 0.5 V is 0.5 ms. impedance 596 ohms. R-wave 9.8 mV 3. LV: LV1, LV 2, capture threshold 1.3 V at 0.5 ms. impedance 766. POSTOPERATIVE DEVICE INTERROGATION: 1. Right atrium P wave 1.9 mV, impedance 456 ohms. Pacing threshold 1.0 at 0.4 ms. 2. RV R-wave 10 mV, impedance 513 ohms, HVB 47 ohms, HVX impedance 59 ohms, capture threshold 0.5 V is 0.4 ms. 3. LV impedance pacing impedance 646 ohms. Pacing threshold 1.75 V at 0.6 ms. IMPRESSION AND CONCLUSION: 1. Successful left-sided biventricular implantable cardioverter-defibrillator placement. 2. The patient will be transferred to the intensive care unit. He will continue on 3 more dosages of IV Ancef. 3. Postoperative EKG will be performed. 4. Chest x-ray will be done to rule out pneumothorax. 5. Device interrogation will be performed again in the morning. Berry Renee MD, [facility] Cardiac Electrophysiology Humberto RENEE MD Jun 02, 2020 13:21
[2020-06-02] MEDS ORDERED: PATIENT MAY USE OWN MEDS, ALL PO SCH (13:30)
--- NOTE | 2020-06-02 13:34 | Anesthesia-General Post-Op ---
MAC Patient Condition Mental Status/LOC: Same as Preop Cardiovascular: Satisfactory Nausea/Vomiting: Absent Respiratory: Satisfactory Pain: Controlled Complications: Absent Post Op Complications Complications None Follow Up Care/Instructions Patient Instructions None needed. Anesthesiology Discharge Order Discharge Order Patient is doing well, no complaints, stable vital signs, no apparent adverse anesthesia problems. No complications reported per nursing. JOCELINE CHIU CRNA Jun 02, 2020 13:34
--- NOTE | 2020-06-02 14:08 | Diagnostic Imaging Report ---
INDICATION: ICD placement. TIME OF EXAM: 1:41 PM Correlation made with prior chest from 02/27/2015. Cardiac defibrillator is in place. There is no pneumothorax. Lungs are clear. No effusion. IMPRESSION: Cardiac defibrillator placement. No pneumothorax is detected. Dictated by: Dictated on workstation # [id number]
--- NOTE | 2020-06-02 14:23 | NUR ---
RECEIVED FROM STARCH COOKER AT THIS TIME, BEDSIDE REPORT GIVEN FROM ANNE MARIE COPPOLA. PATIENT SITE ASSESSED, ICE PACK APPLIED. SLING OBTAINED, PATIENT REFUSED AT THIS TIME. HEART ET LUNG SOUNDS AUSCULTATED, PATIENT HAS NO C/O PAIN AT THIS TIME. PATIENT HAS GAG REFLEX, CLEAR LIQUIDS GIVEN AT THIS TIME ET LUNCH TRAY ORDERED. PATIENT ORIENTED TO ROOM ET CALL LIGHT. VITAL SIGN MACHINE HOOKED UP TO PATIENT TO TAKE VITALS Q15 MINUTE.
[2020-06-02] MEDS: inSUlin ASPART (NovoLOG) 1 UNIT/0.01 ML (CHARGE PER UNIT) SQ SCH ×2 (16:24→20:37)
[2020-06-02] MEDS: ceFAZolin INJECTION 1,000 MG in WATER (STERILE) FOR INJECTION 10 ML IV SCH ×2 (16:27→22:31)
[2020-06-02] MEDS: lisINopril 20 MG (PRINIVIL) TABLET PO SCH (20:37)
[2020-06-02] MEDS: inSUlin NPH/REG (NovoLIN 70/30) CHARGE PER UNIT SQ SCH (20:38)
[2020-06-02] MEDS ORDERED: inSUlin NPH/REG (NovoLIN 70/30) CHARGE PER UNIT SQ SCH (21:00)
[2020-06-03] VITALS: BP 158/91
[2020-06-03] MEDS ORDERED: ACETAMINOPHEN 500 MG TAB (TYLENOL) ONE (00:20)
[2020-06-03] MEDS ORDERED: ACETAMINOPHEN 500 MG TAB (TYLENOL) PO ONE (00:30)
[2020-06-03] MEDS ORDERED: NITROGLYCERIN 0.4 MG SL TABS BTL 25'S SL PRN (02:15)
--- NOTE | 2020-06-03 02:18 | NUR ---
AT APPROX MIDNIGHT THIS PT CALLED OUT FOR THE NURSE TO COME CHECK ON HIS DEVICE. THIS RN WENT INTO THE PATIENTS ROOM TO CHECK ON HIM AND FOUND THAT HE WAS IN SOME MILD DISCOMFORT. PATIENT STATED THAT HE FELT LIKE HIS ICD WAS SHOCKING HIM. THIS RN ASKED WHEN HE STARTED FEELING THIS SENSATION AND THE PT REPLIED "WHEN I TURNED TO MY RIGHT SIDE". THIS RN INSTRUCTED THE PT TO LAY ON HIS BACK. THE PT LAID ON HIS BACK AND TOLD THIS RN THAT HE HAD RELIEF FROM THE "SHOCKING" SENSATION. THIS RN ADVISED THE PT TO REMAIN IN THAT POSITION. PT DENIED CHEST PAIN OR SOA AT THIS TIME. THIS RN NOTIFIED DR CLINTON AND RECEIVED NEW ORDER FOR TYLENOL FOR THE PT'S DISCOMFORT. THIS RN OFFERED THE PATIENT TYLENOL AND HE REFUSED. AT APPROX 0200 THIS PT CALLED OUT TO THE NURSES DESK AND ASKED FOR HIS NURSE TO COME CHECK ON HIM. THIS RN WENT TO CHECK ON THE PT AND THE PT STATED THAT THE "SHOCKING" SENSATION WAS BACK AND THAT HE THOUGHT HE WAS HAVING CHEST PAIN THAT WAS RADIATING TO HIS NECK AND LEFT SHOULDER. THIS RN RAN AN EKG (SEE PT'S CHART) AND NOTIFIED DR. CLINTON. THIS RN RECEIVED NEW ORDERS FOR A TROPONIN NOW AND IN THE MORNING AND FOR NITRO SUBLINGUAL AND FENTANYL 50 MCG. PT REFUSED BOTH FORMS OF TREATMENT AT THIS TIME AND STATES THAT HIS PAIN HAS "LESSENED" BUT STATES HE "CAN STILL FEEL THAT IT IS THERE". PT IS RESTING IN BED AT THIS TIME. BP 173/94, HR 88, 02 96% ON ROOM AIR. WILL CONTINUE TO MONITOR.
[2020-06-03 03:16] LABS: ALBUMIN 3.3 GM/DL (3.2-4.5); BILIRUBIN,TOTAL 0.5 MG/DL (0.1-1.0); CALCIUM 8.4 MG/DL (8.5-10.1); CREATININE SERUM 1.29 MG/DL (0.60-1.30); POTASSIUM 4.2 MMOL/L (3.6-5.0); TOTAL PROTEIN 6.4 GM/DL (6.4-8.2)
[2020-06-03] MEDS: fentaNYL INJECTION 100 MCG/2 ML AMP IVP ONE ×2 (05:04→07:00)
[2020-06-03 05:37] LABS: MEAN PLATELET VOLUME 11.6 FL (7.4-10.4); RED CELL DISTRIBUTION WIDTH 12.4 % (10.0-14.5); WHITE BLOOD COUNT 8.8 10^3/uL (4.3-11.0)
[2020-06-03] MEDS: ceFAZolin INJECTION 1,000 MG in WATER (STERILE) FOR INJECTION 10 ML IV SCH (06:23)
[2020-06-03] MEDS: inSUlin ASPART (NovoLOG) 1 UNIT/0.01 ML (CHARGE PER UNIT) SQ SCH ×4 (06:23→21:43)
--- NOTE | 2020-06-03 06:30 | NUR ---
PT CONTINUES TO HAVE THE SAME SENSATION PREVIOUSLY NOTED BY THIS RN. THE PATIENT STATES THAT THE PAIN IS GETTING WORSE AND THAT HE HAS PAIN AT THE BOTTOM LEFT OF HIS HEART - FENTANYL GIVEN AT THIS TIME. THIS RN NOTIFIED [facility] WHO TOLD THIS RN TO CONTACT [employer]. WHEN THIS RN CONTACTED [employer] AT 0646 I WAS ASKED TO CALL BACK AT 0700. AT 0700 ABDON FROM [employer] SHOWED UP AND DEACTIVATED THE PACER ON THE BIVENTRICULAR DEVICE.
[2020-06-03] MEDS ORDERED: fentaNYL INJECTION 100 MCG/2 ML AMP ONE (06:54)
[2020-06-03] MEDS: lisINopril 20 MG (PRINIVIL) TABLET PO SCH ×2 (08:03→21:44)
[2020-06-03] MEDS: ISOSORBIDE MONONITRATE 60 MG (IMDUR) TAB PO SCH (08:04)
[2020-06-03] MEDS: lisINopril 5 MG (PRINIVIL) TABLET PO SCH (08:04)
[2020-06-03] MEDS: meTOproloL SUCCINATE 50 MG (TOPROL XL) TAB PO SCH (08:05)
[2020-06-03] MEDS: SPIRONOLACTONE 25 MG (ALDACTONE) TAB PO SCH (08:05)
[2020-06-03] MEDS: CLOPIDOGREL 75 MG (PLAVIX) TABLET PO SCH (08:05)
[2020-06-03] MEDS: FUROSEMIDE 40 MG (LASIX) TAB PO SCH (08:05)
[2020-06-03] MEDS: inSUlin NPH/REG (NovoLIN 70/30) CHARGE PER UNIT SQ SCH ×2 (08:07→21:43)
[2020-06-03 08:14] VITALS: BP 122/80
[2020-06-03] MEDS: amLODIPine 10 MG (NORVASC) TAB PO SCH (08:14)
[2020-06-03] MEDS ORDERED: inSUlin NPH/REG (NovoLIN 70/30) CHARGE PER UNIT SQ SCH (09:00)
--- NOTE | 2020-06-03 09:04 | Progress Note - Cardiology ---
Cardiology SO Progress Note Objective: I&O/Vital Signs 06/03/20 06/03/20 06/03/20 06/03/20 00:00 01:00 07:10 08:14 Temp 37.0 Pulse 89 97 97 96 Resp 18 B/P (MAP) 158/91 (113) 122/80 (94) Pulse Ox 98 O2 Delivery Room Air 06/03/20 00:00 Intake Total 830 ml Output Total 550 ml Balance 280 ml Weight (Pounds): 209 Weight (Ounces): 11.0 Weight (Calculated Kilograms): 95.060381 Results/Procedures: Labs Laboratory Tests 06/03/20 02:36: Sodium Level 137, Potassium Level 4.2, Chloride Level 106, Carbon Dioxide Level 24, Anion Gap 7, Blood Urea Nitrogen 19H, Creatinine 1.29, Estimat Glomerular Filtration Rate 56, BUN/Creatinine Ratio 15, Glucose Level 202H, Calcium Level 8.4L, Corrected Calcium 9.0, Total Bilirubin 0.5, Aspartate Amino Transf (AST/SGOT) 31, Alanine Aminotransferase (ALT/SGPT) 39, Alkaline Phosphatase 56, Troponin I 0.144H, Total Protein 6.4, Albumin 3.3 06/03/20 05:24: Troponin I 0.140H, White Blood Count 8.8, Red Blood Count 5.28, Hemoglobin 15.0, Hematocrit 44, Mean Corpuscular Volume 84, Mean Corpuscular Hemoglobin 28, Mean Corpuscular Hemoglobin Concent 34, Red Cell Distribution Width 12.4, Platelet Count 126L, Mean Platelet Volume 11.6H Laboratory Tests 06/02/20 07:45 06/03/20 02:36 06/03/20 05:24 A/P: Assessment: CAD. Last card cath by Dr Bess at [facility] on 02/19/20: LMCA showed minor irreg, LAD showed mod diffuse disease and multiple patent stens, ostial LCX was 99% stenosed and was treated with BMS (Rebel 3x8), RCA had mod diffuse disease and multiple patent stents Chronic systolic CHF due to ischemic cardiomyopathy (NYHA class II - III) MPI of 04/19/20: inferolateral [place] with minimal jacoby-infarct ischemia, inferolateral hypokinesis to akinesis, cardiomegaly, LVEF 25% Echo of 04/20/20: LVEF 30-35%, mod , PASP 25-30 mmHg Mild to mod carotid arterial disease on carotid u/s of March 2020 Bilat leg claudication - segmental pressures of May 05, 2020 is suggestive of mod PAD H/o DVT and PE chronically treated with oral anticoag that is managed by Dr Rosenbaum DM II, insulin-requiring Essential and renovascular hypertension. Has h/o renal artery stenting (pt thinks it was the R renal artery) Chronic LBBB Hyperlipidemia treated with statins Small pulm and thyroid nodules reported o CTA chst doen at [facility]. We obtained those records in late March 2020 and have handed him a copy of the report to discuss management of these with his pcp (Dr Rosenbaum) ARABELLA DOTY Jun 03, 2020 09:04
--- NOTE | 2020-06-03 11:11 | Cardiology Progress Note ---
Cardiology SOAP Progress Note Subjective: events of overnight noted. Patient had diaphragmatic stimulation overnight which subsequently resolved when the patient lied on his left side. Patient refused fentanyl overnight. Mild chest discomfort overnight. Objective: I&O/Vital Signs 06/03/20 06/03/20 06/03/20 06/03/20 00:00 01:00 07:10 08:14 Temp 37.0 Pulse 89 97 97 96 Resp 18 B/P (MAP) 158/91 (113) 122/80 (94) Pulse Ox 98 O2 Delivery Room Air 06/03/20 09:00 Pulse Ox 98 O2 Delivery Room Air 06/03/20 00:00 Intake Total 830 ml Output Total 550 ml Balance 280 ml Weight (Pounds): 209 Weight (Ounces): 11.0 Weight (Calculated Kilograms): 95.752278 Side: left Device Insertion Site: without hematoma Swelling: without swelling Constitutional: AAO x 3 Respiratory: chest is bilaterally symmetric, lungs clear to auscultation Cardiovascular: regular rate-rhythm, S1 and S2 Gastrointestional: soft, audible bowel sounds Extremities: normal range of motion, non-tender, normal inspection, no lower extremity edema bilateral Neurologic/Psychiatric: no motor/sensory deficits, alert, normal mood/affect, oriented x 3 Results/Procedures: Labs Laboratory Tests 06/03/20 02:36: Sodium Level 137, Potassium Level 4.2, Chloride Level 106, Carbon Dioxide Level 24, Anion Gap 7, Blood Urea Nitrogen 19H, Creatinine 1.29, Estimat Glomerular Filtration Rate 56, BUN/Creatinine Ratio 15, Glucose Level 202H, Calcium Level 8.4L, Corrected Calcium 9.0, Total Bilirubin 0.5, Aspartate Amino Transf (AST/SGOT) 31, Alanine Aminotransferase (ALT/SGPT) 39, Alkaline Phosphatase 56, Troponin I 0.144H, Total Protein 6.4, Albumin 3.3 06/03/20 05:24: Troponin I 0.140H, White Blood Count 8.8, Red Blood Count 5.28, Hemoglobin 15.0, Hematocrit 44, Mean Corpuscular Volume 84, Mean Corpuscular Hemoglobin 28, Mean Corpuscular Hemoglobin Concent 34, Red Cell Distribution Width 12.4, Platelet Count 126L, Mean Platelet Volume 11.6H A/P: Assessment/Dx: ischemic cardiomyopathy, congestive heart failure, left bundle branch block. Status post BIV ICD implantation on 06/02/2020. diaphragmatic stimulation. Mild chest discomfort with borderline positive troponin. Plan: device reprogramming for avoiding diaphragmatic stimulation. Mild borderline troponin with no upward trend may be due to DFT testing with induced ventricular fibrillation. Defer to Dr. Solorio. Once patient is ready for discharge, patient will need Keflex 500 mg 3 times a day for 5 days. Wound check with my RN in one week. EP follow-up in one month with me. Thank you for your consultation. Please call me if you have any questions. Berry Renee MD, FACP, FACC, FSCAI, FHRS, CCDS Interventional Cardiology Cardiac Electrophysiology Vascular Medicine and Endovascular Interventions Humberto RENEE MD Jun 03, 2020 11:11
[2020-06-03] MEDS ORDERED: CEPH-507 PO (11:12)
--- NOTE | 2020-06-03 12:25 | Consultation - Hospitalist ---
HPI History of Present Illness: HPI/Chief Complaint Awais Clark is a 64-year-old male with past medical history of hypertension, diabetes, history of DVT/PE on chronic anticoagulation, heart failure with reduced ejection fraction, who presented for a biventricular ICD placement. He underwent the procedure yesterday. Overnight he was having some intermittent chest pain. He was determined that his the was having diaphragmatic stimulation from his ICD. At the time of my evaluation in the Medtronic compliance representative dealer is in the room interrogating the device. He denies any fevers or chills. He denies any chest pain. He denies any shortness of breath. He denies any abdominal pain. He denies any nausea or vomiting. Has no other complaints or concerns. He does have a history of diabetes and takes 70/30 at home. He says that his blood sugars usually run around 170. Source: patient Exam Limitations: no limitations Date Seen 06/03/20 Attending Physician Humberto Renee MD PCP Brien Rosenbaum DO Referring Physician Date of Admission Home Medications & Allergies Home Medications Reviewed patient Home Medication Reconciliation performed by pharmacy medication reconciliations systems testing laboratory technician and/or nursing. Patients Allergies have been reviewed. Allergies Allergies Coded Allergies No Known Allergies (Verified Allergy, Unknown, 06/02/20) Past Ifpxvfg-Urpiye-Olmuex Hx Past Med/Social Hx: Reviewed Nursing Past Med/Soc Hx Patient Social History Alcohol Use: Denies Use Recreational Drug Use: No Smoking Status: Never a Smoker Recent Foreign Travel: No Contact w/other who traveled: No Immunizations Up To Date Tetanus Booster (TDap): Less than 5yrs Date of Pneumonia Vaccine: Jan 24, 2013 Date of Influenza Vaccine: Jun 30, 2019 Past Medical History Surgeries: Coronary Stent Cardiac: Heart Attack, Hypertension Reproductive: No Sexually Transmitted Disease: No HIV/AIDS: No Genitourinary: Kidney Stones Gastrointestinal: Gall Bladder Disease Musculoskeletal: Arthritis Endocrine: Diabetes, Insulin dep Psychosocial: Depression History of Blood Disorders: No Family History Cancer 09 BROTHER (thyroid) Family history: Diabetes mellitus 09 BROTHER 09 SISTER Family history: Thyroid disorder 03 MOTHER 09 BROTHER, 09 BROTHER 09 BROTHER 09 BROTHER (multiple sclerosis) 09 SISTER Heart disease 03 FATHER, (chf) 09 BROTHER, 09 BROTHER Myocardial infarction 09 BROTHER Review of Systems Constitutional: no symptoms reported EENTM: no symptoms reported Respiratory: no symptoms reported Cardiovascular: no symptoms reported Gastrointestinal: no symptoms reported Genitourinary: no symptoms reported Musculoskeletal: no symptoms reported Skin: no symptoms reported Psychiatric/Neurological: No Symptoms Reported Physical Exam Physical Exam Vital Signs Vital Signs - First Documented 06/02/20 07:08 Temp 36.0 Pulse 77 Resp 14 B/P (MAP) 171/110 (130) Pulse Ox 98 O2 Delivery Room Air Capillary Refill : Height, Weight, BMI Height: 6'0.00" Weight: 209lbs. 11.0oz. 95.355477od; 31.17 BMI Method:Stated General Appearance: No Apparent Distress, WD/WN HEENT: PERRL/EOMI, Pharynx Normal Neck: Normal Inspection, Supple Respiratory: Lungs Clear, Normal Breath Sounds, No Respiratory Distress Cardiovascular: Regular Rate, Rhythm, No Edema, No Murmur Gastrointestinal: Normal Bowel Sounds, Non Tender, Soft Extremity: Normal Inspection, Non Tender, No Pedal Edema Neurologic/Psychiatric: Alert, Oriented x3, No Motor/Sensory Deficits, Normal Mood/Affect Skin: Normal Color, Warm/Dry Results Results/Procedures Labs Laboratory Tests 06/02/20 07:45 06/03/20 02:36 06/03/20 05:24 Patient resulted labs reviewed. Imaging: Reviewed Imaging Report Assessment/Plan Assessment and Plan Assess & Plan/Chief Complaint s/p ICD placement LBBB Chronic HFrEF Hypertension Medtronic evaluating ICD Cardiology primary type II diabetes mellitus Continue 70/30 at decreased dose History of venous thromboembolism Chronic anticoagulation resume warfarin when okay with cardiology Thank you for the consult. The hospitalist service will sign off at this time. Please do not hesitate to contact us with any questions or concerns. Diagnosis/Problems Diagnosis/Problems (1) S/P ICD (internal cardiac defibrillator) procedure Status: Acute (2) Chronic HFrEF (heart failure with reduced ejection fraction) Status: Chronic (3) LBBB (left bundle branch block) Status: Chronic (4) HTN (hypertension) Status: Chronic (5) History of venous thromboembolism Status: Chronic (6) Chronic anticoagulation Status: Chronic (7) T2DM (type 2 diabetes mellitus) Status: Chronic RENATO ZAVALA MD Jun 03, 2020 12:25
[2020-06-03] MEDS: CEPHALEXIN 250 MG (KEFLEX) CAP PO SCH ×2 (14:00→21:44)
--- NOTE | 2020-06-03 16:12 | Progress Note - Cardiology ---
Cardiology SOAP Progress Note Subjective: Had a bad night 2 am onwards: jerking and discomfort in the chest No other cp No syncope or shortness of breath No focal weakness Feels exhausted and weak Objective: I&O/Vital Signs 06/03/20 06/03/20 06/03/20 06/03/20 07:10 08:14 09:00 13:00 Pulse 97 96 78 B/P (MAP) 122/80 (94) Pulse Ox 98 O2 Delivery Room Air 06/03/20 00:00 Intake Total 830 ml Output Total 550 ml Balance 280 ml Weight (Pounds): 209 Weight (Ounces): 11.0 Weight (Calculated Kilograms): 95.965186 Side: left Device Insertion Site: without hematoma Swelling: without swelling Constitutional: AAO x 3 Respiratory: chest is bilaterally symmetric, lungs clear to auscultation Cardiovascular: regular rate-rhythm, S1 and S2 Gastrointestional: soft, audible bowel sounds Extremities: normal range of motion, non-tender, normal inspection, no lower extremity edema bilateral Neurologic/Psychiatric: oriented x 3, other (moves all limbs equally) Skin: No rash on exposed areas, No ulcerations on exposed areas Results/Procedures: Labs Laboratory Tests 06/02/20 20:19: Glucometer 211H 06/03/20 02:36: Sodium Level 137, Potassium Level 4.2, Chloride Level 106, Carbon Dioxide Level 24, Anion Gap 7, Blood Urea Nitrogen 19H, Creatinine 1.29, Estimat Glomerular Filtration Rate 56, BUN/Creatinine Ratio 15, Glucose Level 202H, Calcium Level 8.4L, Corrected Calcium 9.0, Total Bilirubin 0.5, Aspartate Amino Transf (AST/S GOT) 31, Alanine Aminotransferase (ALT/SGPT) 39, Alkaline Phosphatase 56, Troponin I 0.144H, Total Protein 6.4, Albumin 3.3 06/03/20 05:24: Troponin I 0.140H, White Blood Count 8.8, Red Blood Count 5.28, Hemoglobin 15.0, Hematocrit 44, Mean Corpuscular Volume 84, Mean Corpuscular Hemoglobin 28, Mean Corpuscular Hemoglobin Concent 34, Red Cell Distribution Width 12.4, Platelet Count 126L, Mean Platelet Volume 11.6H 06/03/20 12:51: Glucometer 318H Microbiology 06/02/20 MRSA Screen - Final, Complete MRSA not isolated Laboratory Tests 06/02/20 07:45 06/03/20 02:36 06/03/20 05:24 A/P: Assessment: S/p PROMOTIONS ASSOCIATE-D on 06/02/20 complicated by diaphragmatic stimulation, now corrected Minimal troponin elevation, likely due to DFT testing on 06/02/20 (not ND) CAD. Last card cath by Dr Bess at [facility] on 02/19/20: LMCA showed minor irreg, LAD showed mod diffuse disease and multiple patent stens, ostial LCX was 99% stenosed and was treated with BMS (Rebel 3x8), RCA had mod diffuse disease and multiple patent stents Chronic systolic CHF due to ischemic cardiomyopathy (NYHA class II - III) MPI of 04/19/20: inferolateral [place] with minimal jacoby-infarct ischemia, inferolateral hypokinesis to akinesis, cardiomegaly, LVEF 25% Echo of 04/20/20: LVEF 30-35%, mod , PASP 25-30 mmHg Mild to mod carotid arterial disease on carotid u/s of March 2020 Bilat leg claudication - segmental pressures of May 05, 2020 is suggestive of mod PAD H/o DVT and PE chronically treated with oral anticoag that is managed by Dr Rosenbaum DM II, insulin-requiring Essential and renovascular hypertension. Has h/o renal artery stenting (pt thinks it was the R renal artery) Chronic LBBB Hyperlipidemia treated with statins Small pulm and thyroid nodules reported o CTA chst doen at [facility]. We obtained those records in late March 2020 and have handed him a copy of the report to discuss management of these with his pcp (Dr Rosenbaum) Plan: * I saw patient for coronary eval at Dr Renee's request and discussed the case with him * Keep in hosp overnight * Continue previous cardiac regimen * Monitor labs KRISTINE CONNER MD FACP FAC CCDS Jun 03, 2020 16:12
[2020-06-03] MEDS ORDERED: ACETAMINOPHEN 325 MG TABLET ONE (16:47)
[2020-06-03] MEDS: ACETAMINOPHEN 325 MG TABLET PO PRN ×2 (16:52→23:41)
--- NOTE | 2020-06-03 21:00 | NUR ---
ASSUMED CARE OF PATIENT AT THIS TIME. REPORT RECEIVED FROM STACEY KENNEY.
[2020-06-03 21:32] VITALS: BP 132/73
[2020-06-03 23:40] VITALS: BP 148/87
[2020-06-04 04:50] VITALS: BP 142/87
[2020-06-04] MEDS: inSUlin ASPART (NovoLOG) 1 UNIT/0.01 ML (CHARGE PER UNIT) SQ SCH ×2 (06:02→10:52)
[2020-06-04] MEDS: ACETAMINOPHEN 325 MG TABLET PO PRN (06:06)
[2020-06-04 08:00] VITALS: BP 158/89
[2020-06-04] MEDS: lisINopril 5 MG (PRINIVIL) TABLET PO SCH (08:12)
[2020-06-04] MEDS: inSUlin NPH/REG (NovoLIN 70/30) CHARGE PER UNIT SQ SCH (08:12)
[2020-06-04] MEDS: meTOproloL SUCCINATE 50 MG (TOPROL XL) TAB PO SCH (08:12)
[2020-06-04] MEDS: ISOSORBIDE MONONITRATE 60 MG (IMDUR) TAB PO SCH (08:12)
[2020-06-04] MEDS: FUROSEMIDE 40 MG (LASIX) TAB PO SCH (08:12)
[2020-06-04] MEDS: CEPHALEXIN 250 MG (KEFLEX) CAP PO SCH (08:12)
[2020-06-04] MEDS: lisINopril 20 MG (PRINIVIL) TABLET PO SCH (08:12)
[2020-06-04] MEDS: amLODIPine 10 MG (NORVASC) TAB PO SCH (08:12)
[2020-06-04] MEDS: CLOPIDOGREL 75 MG (PLAVIX) TABLET PO SCH (08:12)
[2020-06-04] MEDS: SPIRONOLACTONE 25 MG (ALDACTONE) TAB PO SCH (08:12)
--- NOTE | 2020-06-04 11:45 | Progress Note - Cardiology ---
Cardiology SOAP Progress Note Subjective: No cp or palp or syncope or focal weakness The pain and jumping of diaphragm that he was experiencing yesterday has resolved after device adjustments on 06/03/20 No n/v/d Wishes to go home Objective: I&O/Vital Signs 06/04/20 06/04/20 06/04/20 06/04/20 01:00 04:50 07:00 08:00 Temp 36.6 36.4 Pulse 82 80 88 75 Resp 18 18 B/P (MAP) 142/87 (105) 158/89 (112) Pulse Ox 98 97 O2 Delivery Room Air Room Air 06/04/20 09:00 O2 Delivery Room Air 06/04/20 00:00 Intake Total 770 ml Output Total 150 ml Balance 620 ml Weight (Pounds): 209 Weight (Ounces): 11.0 Weight (Calculated Kilograms): [id number] Side: left Device Insertion Site: without hematoma Swelling: without swelling Constitutional: AAO x 3 Respiratory: chest is bilaterally symmetric, lungs clear to auscultation Cardiovascular: regular rate-rhythm, S1 and S2 Gastrointestional: soft, audible bowel sounds Extremities: normal range of motion, non-tender, normal inspection, no lower extremity edema bilateral Neurologic/Psychiatric: oriented x 3, other (moves all limbs equally) Skin: No rash on exposed areas, No ulcerations on exposed areas Results/Procedures: Labs Laboratory Tests 06/03/20 12:51: Glucometer 318H 06/03/20 16:51: Glucometer 205H Microbiology 06/02/20 MRSA Screen - Final, Complete MRSA not isolated Laboratory Tests 06/03/20 02:36 06/03/20 05:24 A/P: Assessment: 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 Last card cath by Dr Bess at [facility] on 02/19/20: LMCA showed minor irreg, LAD showed mod diffuse disease and multiple patent stens, ostial LCX was 99% stenosed and was treated with BMS (Rebel 3x8), RCA had mod diffuse disease and multiple patent stents Chronic systolic CHF due to ischemic cardiomyopathy (NYHA class II - III) MPI of 04/19/20: inferolateral [place] with minimal jacoby-infarct ischemia, inferolateral hypokinesis to akinesis, cardiomegaly, LVEF 25% Echo of 06/03/20: LVEF 30-35%, mod , no pericard eff, lat wall akinesis, distal septal and apical hypokinesis Mild to mod carotid arterial disease on carotid u/s of March 2020 Bilat leg claudication - segmental pressures of May 05, 2020 is suggestive of mod PAD H/o DVT and PE chronically treated with oral anticoag that is managed by Dr Rosenbaum DM II, insulin-requiring Essential and renovascular hypertension. Has h/o renal artery stenting (pt thinks it was the R renal artery) Chronic LBBB Hyperlipidemia treated with statins Small pulm and thyroid nodules reported o CTA chst jacy at [facility]. We obtained those records in late March 2020 and have handed him a copy of the report to discuss management of these with his pcp (Dr Rosenbaum) Plan: * D/c today. Close outpt f/u advised * Advised to return to ER in case of recurrence of symptoms or new symptoms * Continue previous cardiac regimen * Monitor labs KRISTINE CONNER MD FACP FAC CCDS Jun 04, 2020 11:45
--- NOTE | 2020-06-04 11:48 | Discharge Inst-Post Device ---
Discharge Inst-Post Device Follow up/Plan F/u with Dr Renee next week F/u with Dr Solorio in two weeks Heart Healthy Diet Do not lift arm on side of device placement above head for 4 weeks. Do not push and pull heavy objects for 4 weeks. Activity as tolerated. No driving for one week. Leave dressing on until follow up at the office. KRISTINE SOLORIO MD FACP FAC CCDS Jun 04, 2020 11:48
--- NOTE | 2020-06-04 11:48 | Discharge Inst-Cardiology ---
Discharge Inst-Cardiac Discharge Medications New Medications: Cephalexin (Keflex) 500 Mg Capsule 500 MG PO TID for 5 Days, #15 CAP 0 Refills Continued Medications: Amlodipine Besylate (Amlodipine Besylate) 10 Mg Tablet 10 MG PO DAILY, TAB Atorvastatin Calcium (Atorvastatin Calcium) 40 Mg Tablet 40 MG PO DAILY, TAB Clopidogrel Bisulfate (Clopidogrel) 75 Mg Tablet 75 MG PO DAILY, TAB Furosemide (Furosemide) 40 Mg Tablet 40 MG PO DAILY, TAB Insulin NPH Hum/Reg Insulin Hm (Humulin 70-30 Vial) 100 Unit/1 Ml Vial 20 UNIT SQ DAILY, VIAL Insulin NPH Hum/Reg Insulin Hm (Humulin 70-30 Vial) 100 Unit/1 Ml Vial 10 UNIT SQ HS, VIAL Isosorbide Mononitrate (Isosorbide Mononitrate ER) 60 Mg Tab 60 MG PO DAILY, TAB Metoprolol Succinate (Metoprolol Succinate) 50 Mg Tab.er.24h 50 MG PO DAILY, TAB Nitroglycerin (Nitroquick) 0.4 Mg Tab.subl 0.4 MG SL UD PRN for CHEST PAIN TAKE 1 TABLET EVERY 5 MINUTES X 3 DOSES NEEDED FOR CHEST PAIN Ramipril (Ramipril) 10 Mg Capsule 10 MG PO DAILY, CAP Spironolactone (Spironolactone) 25 Mg Tablet 25 MG PO DAILY, TAB Warfarin Sodium (Warfarin Sodium) 6 Mg Tablet 6 MG PO DAILY, TAB Discontinued Medications: Lisinopril (Prinivil) 20 Mg Tablet 20 MG PO BID Lisinopril (Lisinopril) 5 Mg Tablet 5 MG PO DAILY, TAB KRISTINE CONNER MD [facility] CCDS Jun 04, 2020 11:48
[2020-06-04 11:50] VITALS: BP 124/78
--- NOTE | 2020-06-04 11:50 | Cardiology Discharge Summary ---
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 Last card cath by Dr Bess at [facility] on 02/19/20: LMCA showed minor irreg, LAD showed mod diffuse disease and multiple patent stens, ostial LCX was 99% stenosed and was treated with BMS (Rebel 3x8), RCA had mod diffuse disease and multiple patent stents Chronic systolic CHF due to ischemic cardiomyopathy (NYHA class II - III) MPI of 04/19/20: inferolateral [place] with minimal jacoby-infarct ischemia, inferolateral hypokinesis to akinesis, cardiomegaly, LVEF 25% Echo of 06/03/20: LVEF 30-35%, mod , no pericard eff, lat wall akinesis, distal septal and apical hypokinesis Mild to mod carotid arterial disease on carotid u/s of March 2020 Bilat leg claudication - segmental pressures of May 05, 2020 is suggestive of mod PAD H/o DVT and PE chronically treated with oral anticoag that is managed by Dr Rosenbaum DM II, insulin-requiring Essential and renovascular hypertension. Has h/o renal artery stenting (pt thinks it was the R renal artery) Chronic LBBB Hyperlipidemia treated with statins Small pulm and thyroid nodules reported o CTA chst doen at [facility]. We obtained those records in late March 2020 and have handed him a copy of the report to discuss management of these with his pcp (Dr Rosenbaum) Chief Complaint/HPI Chief Complaint/HPI Please see our progress note of today's date for condition at discharge Discharge Summary Discussion & Recommendations Home Medications Reviewed patient Home Medication Reconciliation performed by pharmacy medication reconciliations technical support technician and/or nursing. Patients Allergies have been reviewed. Discharge Home Medications: Reviewed and agree with Discharge Medication list on patient's Discharge Instruction sheet Instructions to patient/family F/u with Dr Renee next week F/u with Dr Solorio in two weeks KRISTINE SOLORIO MD FACP FAC CCDS Jun 04, 2020 11:50
[2020-06-04 12:30] VITALS: BP 127/78
--- NOTE | 2020-06-04 12:30 | NUR ---
RUBÉN CORDOVA demonstrates understanding of discharge instructions and accurately returns instructions upon questioning. Copy of Post-Discharge Instructions given to RUBÉN CORDOVA. RUBÉN CORDOVA is able to manage continuing needs after discharge. Patients belongings returned to RUBÉN CORDOVA. Patient discharged from [facility] on 06/04/2020 at 1230. RUBÉN CORDOVA left floor via WHEELCHAIR, accompanied by THIS RN.
== END 2020-06-04 12:30 | disposition home or self-care (01) ==
LOC: CATH 06:52 → CSD 14:04 → CATH 06-04 12:30
PROVIDERS: ATTEND Internal Medicine Interventional Cardiology
DX: I25.10 Atherosclerotic heart disease of native coronary artery without angina pectoris (principal); I11.0 Hypertensive heart disease with heart failure; I50.42 Chronic combined systolic (congestive) and diastolic (congestive) heart failure; I25.2 Old myocardial infarction; E78.5 Hyperlipidemia, unspecified; I44.7 Left bundle-branch block, unspecified; E11.9 Type 2 diabetes mellitus without complications; I65.23 Occlusion and stenosis of bilateral carotid arteries; E66.9 Obesity, unspecified; Z68.31 Body mass index [BMI] 31.0-31.9, adult; Z79.4 Long term (current) use of insulin; Z79.899 Other long term (current) drug therapy; Z79.01 Long term (current) use of anticoagulants; Z95.5 Presence of coronary angioplasty implant and graft; Z80.9 Family history of malignant neoplasm, unspecified
CPT/HCPCS: 33225; 33249; 71045; 80053; 82962; 85027; 85610; 85730; 87081; 93005; 93306; 93641; C1769; 36415; 84484

== ENCOUNTER 2020-06-22 09:39 | Emergency (ER) | payer MEDICARE ==
[~2020-06-22] VITALS: Ht 182.8 cm; Wt 102.2 kg
[~2020-06-22 09:39] MED LIST changes: +AMLO10TA7 PO; +ATOR40TA70 PO; +CEPH-507 PO; +CLOP75TA28 PO; +FURO40TA4 PO; +HUM100VI SQ; +ISM60TCR PO; +LISI-556 PO; +METO50TA7 PO; +RAMI10CA69 PO; +SPIR25TA5 PO; +WARF6TAB49 PO
[2020-06-22 12:38] LABS: BILIRUBIN,URINE NEGATIVE (NEGATIVE); CLARITY,URINE CLEAR; COLOR,URINE YELLOW; GLUCOSE, URINE (UA) 3+ (NEGATIVE); KETONES,URINE NEGATIVE (NEGATIVE); LEUKOCYTE ESTERASE ,URINE NEGATIVE (NEGATIVE); NITRITE,URINE NEGATIVE (NEGATIVE); PROTEIN,URINE 2+ (NEGATIVE)
[2020-06-22 13:00] LABS: BASOPHILS % (AUTO) 0 % (0-10); EOSINOPHILS # (AUTO) 0.2 10^3/uL (0.0-0.3); EOSINOPHILS % (AUTO) 3 % (0-10); HEMATOCRIT 43 % (40-54); HEMOGLOBIN 14.5 G/DL (13.3-17.7); LYMPHOCYTES % (AUTO) 18 % (12-44); MEAN CORPUSCULAR HEMOGLOBIN 28 PG (25-34); MEAN CORPUSCULAR HGB CONC 34 G/DL (32-36); MEAN CORPUSCULAR VOLUME 84 FL (80-99); MEAN PLATELET VOLUME 11.2 FL (7.4-10.4); MONOCYTES # (AUTO) 0.4 X 10^3 (0.0-1.0); MONOCYTES % (AUTO) 7 % (0-12); NEUTROPHILS % (AUTO) 72 % (42-75); PLATELET COUNT 111 10^3/uL (130-400); WHITE BLOOD COUNT 5.5 10^3/uL (4.3-11.0)
[2020-06-22 13:08] LABS: BACTERIA,URINE NEGATIVE /HPF; RBC,URINE 0-2 /HPF; WBC,URINE 0-2 /HPF
[2020-06-22 13:17] LABS: ALBUMIN 3.9 GM/DL (3.2-4.5); BILIRUBIN,TOTAL 0.4 MG/DL (0.1-1.0); CALCIUM 8.7 MG/DL (8.5-10.1); CREATININE SERUM 1.28 MG/DL (0.60-1.30); POTASSIUM 4.2 MMOL/L (3.6-5.0); TOTAL PROTEIN 7.7 GM/DL (6.4-8.2)
[2020-06-22 13:25] LABS: FIBRIN DEGRADATION PRODUCTS 10.38 UG/ML (0.00-0.49); INR 1.5 (0.8-1.4); PROTHROMBIN TIME PATIENT 18.8 SEC (12.2-14.7)
--- NOTE | 2020-06-22 13:57 | ED Lower Extremity ---
General Chief Complaint: Lower Extremity Stated Complaint: BLOOD CLOTS Nursing Triage Note: AMB TO TRIAGE WAS SENT FROM DR SOLORIO OFFICE WITH DASIA BLOOD CLOTS IN LEGS. Nursing Sepsis Screen: No Definite Risk Source: patient Exam Limitations: no limitations History of Present Illness Date Seen by Provider: Jun 22, 2020 Time Seen by Provider: 12:24 Allergies and Home Medications Allergies Coded Allergies: No Known Allergies (Verified Allergy, Unknown, 06/02/20) Home Medications Amlodipine Besylate 10 Mg Tablet, 10 MG PO DAILY, (Reported) Atorvastatin Calcium 40 Mg Tablet, 40 MG PO DAILY, (Reported) Cephalexin 500 Mg Capsule, 500 MG PO TID Prescribed by: Humberto CLINTON on 06/03/20 1112 Clopidogrel Bisulfate 75 Mg Tablet, 75 MG PO DAILY, (Reported) Furosemide 40 Mg Tablet, 40 MG PO DAILY, (Reported) Insulin NPH Hum/Reg Insulin Hm 100 Unit/1 Ml Vial, 20 UNIT SQ DAILY, (Reported) Insulin NPH Hum/Reg Insulin Hm 100 Unit/1 Ml Vial, 10 UNIT SQ HS, (Reported) Isosorbide Mononitrate 60 Mg Tab, 60 MG PO DAILY, (Reported) Metoprolol Succinate 50 Mg Tab.er.24h, 50 MG PO DAILY, (Reported) Nitroglycerin 0.4 Mg Tab.subl, 0.4 MG SL UD PRN for CHEST PAIN, (Reported) TAKE 1 TABLET EVERY 5 MINUTES X 3 DOSES NEEDED FOR CHEST PAIN Ramipril 10 Mg Capsule, 10 MG PO DAILY, (Reported) Spironolactone 25 Mg Tablet, 25 MG PO DAILY, (Reported) Warfarin Sodium 6 Mg Tablet, 6 MG PO DAILY, (Reported) Past Vresmce-Ayuwwq-Gnvxoy Hx Patient Social History Alcohol Use: Denies Use Recreational Drug Use: No Smoking Status: Never a Smoker Recent Foreign Travel: No Contact w/Someone Who Travel: No Recent Infectious Disease Expo: No Immunizations Up To Date Tetanus Booster (TDap): Less than 5yrs Date of Pneumonia Vaccine: Jan 24, 2013 Date of Influenza Vaccine: Jun 30, 2019 Past Medical History Surgeries: Yes (ACL REPAIR, THYROIDECTOMY, VEIN STRIPPING, OSCAR FILTER, RENAL STENT) Coronary Stent Respiratory: Yes (HX OF LUNG BIOPSY) Pulmonary Embolism 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 ) Heart Attack, Hypertension Neurological: No Reproductive Disorders: No Sexually Transmitted Disease: No HIV/AIDS: No Kidney Stones Gastrointestinal: Yes Gall Bladder Disease Musculoskeletal: Yes Arthritis Endocrine: Yes Diabetes, Insulin dep Cancer: No Psychosocial: Yes Depression Integumentary: No Blood Disorders: No Family Medical History Cancer 09 BROTHER (thyroid) Family history: Diabetes mellitus 09 BROTHER 09 SISTER Family history: Thyroid disorder 03 MOTHER 09 BROTHER, 09 BROTHER 09 BROTHER 09 BROTHER (multiple sclerosis) 09 SISTER Heart disease 03 FATHER, (chf) 09 BROTHER, 09 BROTHER Myocardial infarction 09 BROTHER Physical Exam Vital Signs Vital Signs - First Documented 06/22/20 10:22 Temp 36.9 Pulse 91 Resp 18 B/P (MAP) 166/106 (126) Pulse Ox 99 Capillary Refill : Less Than 3 Seconds Height, Weight, BMI Height: 6'0.00" Weight: 209lbs. 11.0oz. 95.879332oi; 30.00 BMI Method:Stated Progress/Results/Core Measures Results/Orders Lab Results Laboratory Tests Test 06/22/20 12:30 06/22/20 12:45 Range/Units Urine Color YELLOW Urine Clarity CLEAR Urine pH 6.0 5-9 Urine Specific Beauty >=1.030 1.016-1.022 Urine Protein 2+ H NEGATIVE Urine Glucose (UA) 3+ H NEGATIVE Urine Ketones NEGATIVE NEGATIVE Urine Nitrite NEGATIVE NEGATIVE Urine Bilirubin NEGATIVE NEGATIVE Urine Urobilinogen 0.2 < = 1.0 MG/DL Urine Leukocyte Esterase NEGATIVE NEGATIVE Urine RBC (Auto) TRACE-L NEGATIVE Urine RBC 0-2 /HPF Urine WBC 0-2 /HPF Urine Squamous Epithelial Cells 2-5 /HPF Urine Crystals NONE /LPF Urine Bacteria NEGATIVE /HPF Urine Casts NONE /LPF Urine Mucus NEGATIVE /LPF Urine Culture Indicated NO White Blood Count 5.5 4.3-11.0 10^3/uL Red Blood Count 5.10 4.35-5.85 10^6/uL Hemoglobin 14.5 13.3-17.7 G/DL Hematocrit 43 40-54 % Mean Corpuscular Volume 84 80-99 FL Mean Corpuscular Hemoglobin 28 25-34 PG Mean Corpuscular Hemoglobin Concent 34 32-36 G/DL Red Cell Distribution Width 12.9 10.0-14.5 % Platelet Count 111 L 130-400 10^3/uL Mean Platelet Volume 11.2 H 7.4-10.4 FL Neutrophils (%) (Auto) 72 42-75 % Lymphocytes (%) (Auto) 18 12-44 % Monocytes (%) (Auto) 7 0-12 % Eosinophils (%) (Auto) 3 0-10 % Basophils (%) (Auto) 0 0-10 % Neutrophils # (Auto) 4.0 1.8-7.8 X 10^3 Lymphocytes # (Auto) 1.0 1.0-4.0 X 10^3 Monocytes # (Auto) 0.4 0.0-1.0 X 10^3 Eosinophils # (Auto) 0.2 0.0-0.3 10^3/uL Basophils # (Auto) 0.0 0.0-0.1 10^3/uL Prothrombin Time 18.8 H 12.2-14.7 SEC INR Comment 1.5 H 0.8-1.4 Activated Partial Thromboplast Time 31 24-35 SEC D-Dimer 10.38 H 0.00-0.49 UG/ML Sodium Level 138 135-145 MMOL/L Potassium Level 4.2 3.6-5.0 MMOL/L Chloride Level 105 98-107 MMOL/L Carbon Dioxide Level 22 21-32 MMOL/L Anion Gap 11 5-14 MMOL/L Blood Urea Nitrogen 14 7-18 MG/DL Creatinine 1.28 0.60-1.30 MG/DL Estimat Glomerular Filtration Rate 56 BUN/Creatinine Ratio 11 Glucose Level 251 H 70-105 MG/DL Calcium Level 8.7 8.5-10.1 MG/DL Corrected Calcium 8.8 8.5-10.1 MG/DL Total Bilirubin 0.4 0.1-1.0 MG/DL Aspartate Amino Transf (AST/SGOT) 24 5-34 U/L Alanine Aminotransferase (ALT/SGPT) 25 0-55 U/L Alkaline Phosphatase 68 40-136 U/L Total Protein 7.7 6.4-8.2 GM/DL Albumin 3.9 3.2-4.5 GM/DL My Orders Orders - CHAUNCEY TAMEZ Comprehensive Metabolic Panel (06/22/20 12:22) Ua Culture If Indicated (06/22/20 12:22) Ed Iv/Invasive Line Start (06/22/20 12:22) Cbc With Automated Diff (06/22/20 12:22) Fibrin Degradation Products (06/22/20 12:22) Partial Thromboplastin Time (06/22/20 12:22) Protime With Inr (06/22/20 12:22) Us Right Low Ext [id number] (06/22/20 12:54) Us Venous Lower Ext Rt (06/22/20 12:54) Vital Signs/I&O 06/22/20 10:22 Temp 36.9 Pulse 91 Resp 18 B/P (MAP) 166/106 (126) Pulse Ox 99 Blood Pressure Mean: 126 Departure Impression Primary Impression: Deep vein thrombophlebitis of leg Qualified Codes: I80.201 - Phlebitis and thrombophlebitis of unspecified deep vessels of right lower extremity Disposition: HOME, SELF-CARE Condition: Stable/Unchanged Departure-Patient Inst. Decision time for Depature: 15:05 Referrals: ARTIE PETTY DO (PCP/Family) Primary Care Physician Patient Instructions: Deep Vein Thrombosis (Blood Clots in the Legs) (DC) Add. Discharge Instructions: Stop your Coumadin and start taking Eliquis as prescribed. Continue all other medications. Follow-up with Dr. Solorio's Office as scheduled on 06/29/2020. Dr. Solorio will need to write your prescription for the second week of your medication. Return back to the emergency room for worsening symptoms, pain, shortness of breath, or any other concerns as needed. All discharge instructions reviewed with patient and/or family. Voiced understanding. Scripts Apixaban (Eliquis) 5 Mg Tablet 10 MG PO BID for 7 Days, #28 TAB Prov: CHAUNCEY TAMEZ 06/22/20 CHAUNCEY TAMEZ Jun 22, 2020 13:56
[2020-06-22] MEDS ORDERED: APIX5TAB PO (15:14)
--- NOTE | 2020-06-22 15:17 | Diagnostic Imaging Report ---
PROCEDURE: US right lower extremity venous. TECHNIQUE: Multiple real-time grayscale images were obtained over the right lower extremity in various projections. Additional spectral analysis and color Doppler duplex images were also obtained. INDICATION: Pain behind the right knee. A right common femoral vein is patent. There appears to be partially occlusive thrombus in the upper portion of the superficial femoral vein with occlusive thrombus in the mid and lower superficial femoral vein as well as the popliteal vein. There is thrombus within the peroneal trunk. The majority of calf veins are patent. No fluid collections are seen. IMPRESSION: Extensive right lower extremity DVT. Dictated by: Dictated on workstation # [id number]
--- NOTE | 2020-06-22 15:23 | Diagnostic Imaging Report ---
INDICATION: Right leg pain. TECHNIQUE: Grayscale, color flow and duplex Doppler evaluation of the right lower extremity arterial system was performed. FINDINGS: There are biphasic waveforms in the right common femoral, superficial femoral, and popliteal arteries, with normal-appearing velocities. There are monophasic waveforms in the posterior tibial and dorsalis pedis arteries at the foot and ankle. No definite flow was identified in the anterior tibial artery. IMPRESSION: Two-vessel flow at the foot and ankle with no definite visualized flow in the anterior tibial artery. Study is otherwise unremarkable. Dictated by: Dictated on workstation # [id number]
[2020-06-22 15:39] VITALS: BP 149/119
== END 2020-06-22 15:40 | disposition home or self-care (01) ==
LOC: EDUNIT# 09:39 → ER 09:40
DX: I82.491 Acute embolism and thrombosis of other specified deep vein of right lower extremity (principal); I10 Essential (primary) hypertension; I25.2 Old myocardial infarction; E11.9 Type 2 diabetes mellitus without complications; Z82.49 Family history of ischemic heart disease and other diseases of the circulatory system; Z80.8 Family history of malignant neoplasm of other organs or systems; Z95.5 Presence of coronary angioplasty implant and graft; Z95.0 Presence of cardiac pacemaker; Z79.4 Long term (current) use of insulin; Z86.711 Personal history of pulmonary embolism; Z79.01 Long term (current) use of anticoagulants
CPT/HCPCS: 36415; 80053; 81000; 85025; 85379; 85610; 85730; 93926

== ENCOUNTER → 2020-07-01 | Outpatient (CLI) | payer MEDICARE ==
[~2020-07-01] MED LIST changes: +APIX5TAB PO
[2020-07-01 10:53] LABS: BASOPHILS % (AUTO) 0 % (0-10); EOSINOPHILS # (AUTO) 0.2 10^3/uL (0.0-0.3); EOSINOPHILS % (AUTO) 2 % (0-10); HEMATOCRIT 41 % (40-54); HEMOGLOBIN 13.8 G/DL (13.3-17.7); LYMPHOCYTES # (AUTO) 1.3 X 10^3 (1.0-4.0); LYMPHOCYTES % (AUTO) 16 % (12-44); MEAN CORPUSCULAR HEMOGLOBIN 29 PG (25-34); MEAN CORPUSCULAR HGB CONC 34 G/DL (32-36); MEAN CORPUSCULAR VOLUME 85 FL (80-99); MONOCYTES # (AUTO) 0.6 X 10^3 (0.0-1.0); MONOCYTES % (AUTO) 8 % (0-12); NEUTROPHILS % (AUTO) 74 % (42-75); PLATELET COUNT 128 10^3/uL (130-400); WHITE BLOOD COUNT 8.2 10^3/uL (4.3-11.0)
[2020-07-01 11:12] LABS: BUN/CREATININE RATIO 15; CALCIUM 8.7 MG/DL (8.5-10.1); CARBON DIOXIDE 23 MMOL/L (21-32); CHLORIDE 103 MMOL/L (98-107); CREATININE SERUM 1.14 MG/DL (0.60-1.30); GFR ESTIMATED > 60; GLUCOSE 225 MG/DL (70-105); MAGNESIUM 1.7 MG/DL (1.6-2.4); POTASSIUM 4.3 MMOL/L (3.6-5.0); SODIUM 135 MMOL/L (135-145)
== END ==
LOC: LAB 10:40
PROVIDERS: ATTEND Internal Medicine Cardiovascular Disease
DX: I82.411 Acute embolism and thrombosis of right femoral vein (principal); I25.10 Atherosclerotic heart disease of native coronary artery without angina pectoris; I65.29 Occlusion and stenosis of unspecified carotid artery; I42.0 Dilated cardiomyopathy; Z95.0 Presence of cardiac pacemaker
CPT/HCPCS: 36415; 80048; 83735; 85025

== ENCOUNTER 2020-07-23 14:11 | Emergency (ER) | payer MEDICARE ==
[~2020-07-23] VITALS: Ht 193 cm; Wt 97.5 kg
--- NOTE | 2020-07-23 14:40 | ED EENT ---
History of Present Illness General Chief Complaint: Eye Problems Stated Complaint: VISION LOSS/ISSUES BILAT EYES Nursing Triage Note: PT AMBULATE TO ROOM WITH C/O VISION CHANGES. 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 PT REPORTS THAT RIGHT EYE BECAME BLURRY X2 DAYS AGO. History of Present Illness Date Seen by Provider: Jul 23, 2020 Time Seen by Provider: 14:39 Initial Comments This is a 64-year-old male presents to the ER with blurred vision. States he has had chronic blurred vision over the past year. However, this has progressively worsened. He reports chronic blurry vision in his left eye, but 3 days ago he began experiencing constant blurry vision in his right eye. Denies associated symptoms of pain, loss of vision, headache, nausea, vomiting. Allergies and Home Medications Allergies Coded Allergies: No Known Allergies (Verified Allergy, Unknown, 06/02/20) Home Medications Amlodipine Besylate 10 Mg Tablet, 10 MG PO DAILY, (Reported) Apixaban 5 Mg Tablet, 10 MG PO BID Prescribed by: CHAUNCEY TAMEZ on 06/22/20 1514 Atorvastatin Calcium 40 Mg Tablet, 40 MG PO DAILY, (Reported) Cephalexin 500 Mg Capsule, 500 MG PO TID Prescribed by: Humberto CLINTON on 06/03/20 1112 Clopidogrel Bisulfate 75 Mg Tablet, 75 MG PO DAILY, (Reported) Furosemide 40 Mg Tablet, 40 MG PO DAILY, (Reported) Insulin NPH Hum/Reg Insulin Hm 100 Unit/1 Ml Vial, 20 UNIT SQ DAILY, (Reported) Insulin NPH Hum/Reg Insulin Hm 100 Unit/1 Ml Vial, 10 UNIT SQ HS, (Reported) Isosorbide Mononitrate 60 Mg Tab, 60 MG PO DAILY, (Reported) Metoprolol Succinate 50 Mg Tab.er.24h, 50 MG PO DAILY, (Reported) Nitroglycerin 0.4 Mg Tab.subl, 0.4 MG SL UD PRN for CHEST PAIN, (Reported) TAKE 1 TABLET EVERY 5 MINUTES X 3 DOSES NEEDED FOR CHEST PAIN Ramipril 10 Mg Capsule, 10 MG PO DAILY, (Reported) Spironolactone 25 Mg Tablet, 25 MG PO DAILY, (Reported) Warfarin Sodium 6 Mg Tablet, 6 MG PO DAILY, (Reported) Patient Home Medication List Home Medication List Reviewed: Yes Review of Systems Review of Systems Constitutional: no symptoms reported Eyes: See HPI Ears: No Symptoms Reported Nose: no symptoms reported Mouth: no symptoms reported Throat: no symptoms reported Respiratory: no symptoms reported Cardiovascular: chest pain, other (intermittent chest pain) Gastrointestinal: no symptoms reported Musculoskeletal: no symptoms reported Skin: no symptoms reported Neurological: Weakness (generalized) Hematologic/Lymphatic: No Symptoms Reported Immunological/Allergic: no symptoms reported Past [place]-Goxbeq-Dqrtzt Hx Patient Social History Recent Foreign Travel: No Contact w/Someone Who Travel: No Recent Infectious Disease Expo: No Immunizations Up To Date Tetanus Booster (TDap): Less than 5yrs Date of Pneumonia Vaccine: Jan 24, 2013 Date of Influenza Vaccine: Jun 30, 2019 Past Medical History Surgeries: Yes (ACL REPAIR, THYROIDECTOMY, VEIN STRIPPING, OSCAR FILTER, RENAL STENT) Coronary Stent Respiratory: Yes (HX OF LUNG BIOPSY) Pulmonary Embolism 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 ) Heart Attack, Hypertension Neurological: No Reproductive Disorders: No Sexually Transmitted Disease: No HIV/AIDS: No Kidney Stones Gastrointestinal: Yes Gall Bladder Disease Musculoskeletal: Yes Arthritis Endocrine: Yes Diabetes, Insulin dep Cancer: No Psychosocial: Yes Depression Integumentary: No Blood Disorders: No Family Medical History Cancer 09 BROTHER (thyroid) Family history: Diabetes mellitus 09 BROTHER 09 SISTER Family history: Thyroid disorder 03 MOTHER 09 BROTHER, 09 BROTHER 09 BROTHER 09 BROTHER (multiple sclerosis) 09 SISTER Heart disease 03 FATHER, (chf) 09 BROTHER, 09 BROTHER Myocardial infarction 09 BROTHER Visual Acuity : Eye Location: Bilaterally Vision Acuity Degree: States he is unable to read letters due to blurriness Physical Exam Vital Signs Vital Signs - First Documented 07/23/20 14:15 Temp 36.6 Pulse 75 Resp 18 B/P (MAP) 144/88 (106) O2 Delivery Room Air Height, Weight, BMI Height: 6'0.00" Weight: 209lbs. 11.0oz. 95.236228yz; 26.00 BMI Method:Stated General Appearance: WD/WN, no apparent distress Nose: normal inspection Mouth/Throat: normal mouth inspection, pharynx normal Neck: non-tender, full range of motion, supple Cardiovascular: regular rate, rhythm, no edema, systolic murmur Respiratory: chest non-tender, lungs clear, normal breath sounds, no respiratory distress Gastrointestinal: normal bowel sounds, non tender, soft Neurologic/Psychiatric: no motor/sensory deficits, alert, normal mood/affect, oriented x 3 (No focal or gross neurological deficits appreciated) Skin: normal color, warm/dry Progress/Results/Core Measures Results/Orders Lab Results Laboratory Tests Test 07/23/20 15:15 07/23/20 15:18 07/23/20 17:12 Range/Units White Blood Count 5.6 4.3-11.0 10^3/uL Red Blood Count 4.70 4.30-5.52 10^6/uL Hemoglobin 13.3 13.3-17.7 g/dL Hematocrit 41 40-54 % Mean Corpuscular Volume 87 80-99 fL Mean Corpuscular Hemoglobin 28 25-34 pg Mean Corpuscular Hemoglobin Concent 32 32-36 g/dL Red Cell Distribution Width 13.2 10.0-14.5 % Platelet Count 161 130-400 10^3/uL Mean Platelet Volume 11.3 9.0-12.2 fL Immature Granulocyte % (Auto) 1 % Neutrophils (%) (Auto) 69 42-75 % Lymphocytes (%) (Auto) 20 12-44 % Monocytes (%) (Auto) 9 0-12 % Eosinophils (%) (Auto) 2 0-10 % Basophils (%) (Auto) 0 0-10 % Neutrophils # (Auto) 3.8 1.8-7.8 10^3/uL Lymphocytes # (Auto) 1.1 1.0-4.0 10^3/uL Monocytes # (Auto) 0.5 0.0-1.0 10^3/uL Eosinophils # (Auto) 0.1 0.0-0.3 10^3/uL Basophils # (Auto) 0.0 0.0-0.1 10^3/uL Immature Granulocyte # (Auto) 0.0 0.0-0.1 10^3/uL Erythrocyte Sedimentation Rate 20 0-30 MM/HR Prothrombin Time 14.9 H 12.2-14.7 SEC INR Comment 1.1 0.8-1.4 Sodium Level 136 135-145 MMOL/L Potassium Level 4.5 3.6-5.0 MMOL/L Chloride Level 103 98-107 MMOL/L Carbon Dioxide Level 22 21-32 MMOL/L Anion Gap 11 5-14 MMOL/L Blood Urea Nitrogen 24 H 7-18 MG/DL Creatinine 1.48 H 0.60-1.30 MG/DL Estimat Glomerular Filtration Rate 48 BUN/Creatinine Ratio 16 Glucose Level 273 H 70-105 MG/DL Calcium Level 8.7 8.5-10.1 MG/DL Corrected Calcium 8.8 8.5-10.1 MG/DL Total Bilirubin 0.9 0.1-1.0 MG/DL Aspartate Amino Transf (AST/SGOT) 17 5-34 U/L Alanine Aminotransferase (ALT/SGPT) 19 0-55 U/L Alkaline Phosphatase 51 40-136 U/L Troponin I 0.040 H 0.030 H <0.028 NG/ML Total Protein 7.5 6.4-8.2 GM/DL Albumin 3.9 3.2-4.5 GM/DL Urine Color YELLOW Urine Clarity CLEAR Urine pH 5.5 5-9 Urine Specific [place] >=1.030 1.016-1.022 Urine Protein 2+ H NEGATIVE Urine Glucose (UA) TRACE H NEGATIVE Urine Ketones TRACE H NEGATIVE Urine Nitrite NEGATIVE NEGATIVE Urine Bilirubin 1+ H NEGATIVE Urine Urobilinogen 1.0 < = 1.0 MG/DL Urine Leukocyte Esterase NEGATIVE NEGATIVE Urine RBC (Auto) NEGATIVE NEGATIVE Urine RBC NONE /HPF Urine WBC 5-10 H /HPF Urine Squamous Epithelial Cells 5-10 /HPF Urine Crystals PRESENT H /LPF Urine Amorphous Sediment FEW MIRNA URATES H /LPF Urine Bacteria TRACE /HPF Urine Casts NONE /LPF Urine Mucus NEGATIVE /LPF Urine Culture Indicated YES My Orders Orders - DARLING COATES APRN Cbc With Automated Diff (07/23/20 14:41) Comprehensive Metabolic Panel (07/23/20 14:41) Protime With Inr (07/23/20 14:41) Ct Head Wo-R/O Stroke (07/23/20 14:41) Ekg Tracing (07/23/20 14:48) Troponin I (07/23/20 14:48) Ua Culture If Indicated (07/23/20 14:48) Urine Culture (07/23/20 15:18) Troponin I (07/23/20 17:00) Erythrocyte Sedimentation Rate (07/23/20 16:25) Tetracaine 0.5% Ophth Terese Sdv (Tetracai (07/23/20 16:45) Ceftriaxone For Iv Use (Rocephin For I (07/23/20 18:15) Medications Given in ED Current Medications Medications Dose Ordered Sig/Ji Route Start Time Stop Time Status Last Admin Dose Admin Ceftriaxone Sodium 1000 mg/ Sterile Water 10 ml @ 200 mls/hr ONCE ONCE IV 07/23/20 18:15 07/23/20 18:17 DC 07/23/20 18:13 200 MLS/HR Tetracaine HCl 1 OR 2 DROPS INTO AFFEC... ONCE ONCE OP 07/23/20 16:45 07/23/20 16:46 DC 07/23/20 17:15 4 ML Vital Signs/I&O 07/23/20 14:15 Temp 36.6 Pulse 75 Resp 18 B/P (MAP) 144/88 (106) O2 Delivery Room Air Blood Pressure Mean: 106 Progress Progress Note : Progress Note After obtaining HPI he reports history of blood clots, and states he is being treated with Eliquis. Will obtain CT head to rule out any bleed or signs of stroke. Basic labs ordered for complaints of weakness. Was unable to read letters approximately 14 inches from face stating his vision was too blurry. Performed confrontation test and he was visualize all peripheral mcbride. Denies any symptoms of black spots or curtain falling in either eye. 1447. Upon returning to room patient also admits to having intermittent chest pains, which he reports as chronic. Ordered EKG and troponin at this time. 1650: Ocular pressure checked in both eyes. Right eye-14 mmHg and Left eye-20 mm Hg. He is noted to have urinary tract infection, which could be attributing to his generalized weakness. Received Rocephin 1 g IV in ED. Reviewed POC and he is agreeable with plan. Diagnostic Imaging Diagonstic Imaging: CT Plain Films/CT/US/NM/MRI: head Comments NAME: [facility]UBÉN [facility] REC#: [id number] PT STATUS: REG ER : 1955 PHYSICIAN: DARLING COATES APRN ADMIT DATE: 07/23/20/ER Signed Date of Exam:07/23/20 CT HEAD WO-R/O STROKE PROCEDURE: CT head w/o r/o stroke. TECHNIQUE: Multiple contiguous axial images were obtained through the brain without the use of intravenous contrast. Auto Exposure Controls were utilized during the CT exam to meet ALARA standards for radiation dose reduction. INDICATION: Blurred vision. COMPARISON: 01/27/2013. FINDINGS: Age-appropriate volume loss. Calcification within the left basal ganglia is again seen. No intracranial hemorrhage. No intracranial mass, mass effect, midline shift, herniation, hydrocephalus or extra-axial fluid collection. No CT evidence of an acute ischemic infarction. The orbits are unremarkable. The visualized paranasal sinuses are clear. The calvarium and extracalvarial soft tissues are unremarkable. IMPRESSION: 1. No acute intracranial abnormality with age-appropriate volume loss. 2. If there remains clinical concern, further evaluation with MRI of the brain could be obtained. Dictated by: Dictated on workstation # [id number] Dict: 07/23/20 1533 Trans: 07/23/201705 PJE [id number] Interpreted by: ADRIANA MCMAHON MD Electronically signed by: ADRIANA MCMAHON MD 07/23/201705 Departure Communication (Admissions) Time/Spoke to Consulting Phy: 16:[address] Navarrete, who recommended checking ocular pressure. If ocular pressure was within normal limits then he is to follow-up in the office on Saturday, demographics provided. Discussed case with patient, he is agreeable with following up at Dr. Pederson's office on Saturday. Impression Primary Impression: UTI (urinary tract infection) Additional Impressions: Blurred vision, bilateral H/O blurred vision Disposition: 01 HOME, SELF-CARE Condition: Stable/Unchanged Departure-Patient Inst. Referrals: ARTIE PETTY DO (PCP/Family) Primary Care Physician Patient Instructions: Urinary Tract Infection, Adult (DC) Add. Discharge Instructions: Plan: 1. Follow up with Dr. Pederson office on Saturday. The office is located at [address] [place] [address] in [place]. The phone number is [phone], please call Saturday morning to schedule an appointment. 2. You received a dose of antibiotics in the ER. We will culture your urine to see if any further antibiotic treatment is needed. 3. Keep follow-up appointment with Dr. Petty as previously scheduled. 4. Return for any new or concerning symptoms. All discharge instructions reviewed with patient and/or family. Voiced understanding. DARLING COATES APRN Jul 23, 2020 14:40
[2020-07-23 15:24] LABS: CLARITY,URINE CLEAR; COLOR,URINE YELLOW; GLUCOSE, URINE (UA) TRACE (NEGATIVE); KETONES,URINE TRACE (NEGATIVE); LEUKOCYTE ESTERASE ,URINE NEGATIVE (NEGATIVE); NITRITE,URINE NEGATIVE (NEGATIVE); PH,URINE 5.5 (5-9); PROTEIN,URINE 2+ (NEGATIVE)
[2020-07-23 15:25] LABS: BASOPHILS % (AUTO) 0 % (0-10); EOSINOPHILS # (AUTO) 0.1 10^3/uL (0.0-0.3); EOSINOPHILS % (AUTO) 2 % (0-10); HEMATOCRIT 41 % (40-54); HEMOGLOBIN 13.3 g/dL (13.3-17.7); LYMPHOCYTES # (AUTO) 1.1 10^3/uL (1.0-4.0); LYMPHOCYTES % (AUTO) 20 % (12-44); MEAN CORPUSCULAR HEMOGLOBIN 28 pg (25-34); MEAN CORPUSCULAR HGB CONC 32 g/dL (32-36); MEAN CORPUSCULAR VOLUME 87 fL (80-99); MEAN PLATELET VOLUME 11.3 fL (9.0-12.2); MONOCYTES # (AUTO) 0.5 10^3/uL (0.0-1.0); MONOCYTES % (AUTO) 9 % (0-12); NEUTROPHILS # (AUTO) 3.8 10^3/uL (1.8-7.8); NEUTROPHILS % (AUTO) 69 % (42-75); PLATELET COUNT 161 10^3/uL (130-400); WHITE BLOOD COUNT 5.6 10^3/uL (4.3-11.0)
[2020-07-23 15:34] LABS: INR 1.1 (0.8-1.4); PROTHROMBIN TIME PATIENT 14.9 SEC (12.2-14.7)
[2020-07-23 15:36] LABS: ALBUMIN 3.9 GM/DL (3.2-4.5); POTASSIUM 4.5 MMOL/L (3.6-5.0)
[2020-07-23 15:37] LABS: CALCIUM 8.7 MG/DL (8.5-10.1)
[2020-07-23 15:39] LABS: TOTAL PROTEIN 7.5 GM/DL (6.4-8.2)
[2020-07-23 15:40] LABS: BILIRUBIN,TOTAL 0.9 MG/DL (0.1-1.0)
[2020-07-23 15:42] LABS: CREATININE SERUM 1.48 MG/DL (0.60-1.30)
[2020-07-23 15:44] LABS: BACTERIA,URINE TRACE /HPF
[2020-07-23 15:45] LABS: AMORPHOUS SEDIMENT,UR FEW AMOR URATES /LPF
[2020-07-23 15:46] LABS: BILIRUBIN,URINE 1+ (NEGATIVE)
--- NOTE | 2020-07-23 16:09 | Diagnostic Imaging Report ---
PROCEDURE: CT head w/o r/o stroke. TECHNIQUE: Multiple contiguous axial images were obtained through the brain without the use of intravenous contrast. Auto Exposure Controls were utilized during the CT exam to meet ALARA standards for radiation dose reduction. INDICATION: Blurred vision. COMPARISON: 01/27/2013. FINDINGS: Age-appropriate volume loss. Calcification within the left basal ganglia is again seen. No intracranial hemorrhage. No intracranial mass, mass effect, midline shift, herniation, hydrocephalus or extra-axial fluid collection. No CT evidence of an acute ischemic infarction. The orbits are unremarkable. The visualized paranasal sinuses are clear. The calvarium and extracalvarial soft tissues are unremarkable. IMPRESSION: 1. No acute intracranial abnormality with age-appropriate volume loss. 2. If there remains clinical concern, further evaluation with MRI of the brain could be obtained. Dictated by: Dictated on workstation # [id number]
[2020-07-23] MEDS ORDERED: TETRACAINE 0.5% OPHTH SOLN 4 ML BTL (SINGLE DOSE ONLY) OP ONE (16:45)
[2020-07-23] MEDS ORDERED: cefTRIAXone FOR IV USE 1,000 MG in WATER (STERILE) FOR INJECTION 10 ML IV ONE (18:15)
[2020-07-23 18:29] VITALS: BP 159/86
== END 2020-07-23 18:29 | disposition home or self-care (01) ==
LOC: EDUNIT# 14:11 → ER 14:12
DX: N39.0 Urinary tract infection, site not specified (principal); H53.8 Other visual disturbances; E11.9 Type 2 diabetes mellitus without complications; I25.2 Old myocardial infarction; I10 Essential (primary) hypertension; Z80.8 Family history of malignant neoplasm of other organs or systems; Z82.49 Family history of ischemic heart disease and other diseases of the circulatory system; Z83.3 Family history of diabetes mellitus; Z95.5 Presence of coronary angioplasty implant and graft; Z95.0 Presence of cardiac pacemaker; Z86.711 Personal history of pulmonary embolism; Z79.01 Long term (current) use of anticoagulants; Z79.4 Long term (current) use of insulin
CPT/HCPCS: 36415; 70450; 80053; 81000; 84484; 85025; 85610; 85652; 87088